=== PATIENT | male | born 1945 | race Caucasian/White ===

== ENCOUNTER 2021-11-25 15:24 | Emergency (ER) | payer MEDICARE, SELFPAY ==
[2021-11-25 15:37] VITALS: BP 119/64; PULSE 51; RESP 16; TEMP 36.7; O2SAT 100
[2021-11-25 15:48] VITALS: BP 119/64; PULSE 51; RESP 16; TEMP 36.7; O2SAT 100
--- NOTE | 2021-11-25 15:52 | ECG_ITS ---
Measurements Intervals [place] Rate: 43 P: 52 NH: 106 QRS: -67 QRSD: 133 T: 38 QT: 477 QTc: 407 Interpretive Statements SINUS BRADYCARDIA WITH SHORT NH INTERVAL LEFT AXIS DEVIATION LEFT BUNDLE BRANCH BLOCK ABNORMAL ECG NO PREVIOUS ECG AVAILABLE FOR COMPARISON Electronically Signed On 11-25-2021 16:45:40 CDT by Kapil Werner D.O.
--- NOTE | 2021-11-25 15:53 | ED.CHESTPAIN ---
HPI - Chest Pain General Chief Complaint: Chest Pain Stated Complaint: chest pain Time Seen by Provider: 11/25/21 15:50 Source: patient and RN notes reviewed Mode of arrival: ambulatory Limitations: no limitations History of Present Illness HPI narrative: 76-year-old male who has a history of dementia presents to the [facility] with significant other. Patient has had chest pain since 11 AM per significant other. Has taken at least 4 baby aspirin. Has vomited approximately 2 PM today. Is denying any other symptoms. MD complaint: chest pain Related Data Home Medications Medication Instructions Recorded Confirmed donepezil 10 mg tablet 10 mg PO DAILY 11/25/21 11/25/21 Allergies Allergy/AdvReac Type Severity Reaction Status Date / Time No Known Allergies Allergy Unverified 11/25/21 16:09 Review of Systems Review of Systems: All systems reviewed & are unremarkable except as noted in HPI and below Constitutional: Constitutional: Reports no additional constitutional complaints, Denies chills and Denies fever(s) Eyes: Eyes: Reports no additional eye complaints ENT: Reports system reviewed and no additional complaints, except as documented Cardiovascular: Cardiovascular: Reports as per HPI, Reports chest pain and Reports slow heart rate Respiratory: Respiratory: Reports no additional respiratory complaints Gastrointestinal: Gastrointestinal: Reports as per HPI, Reports nausea and Reports vomiting Musculoskeletal: Musculoskeletal: Reports no additional musculoskeletal complaints Integumentary/Breasts: Skin/Breast: Reports system reviewed and no additional complaints, except as docu Neurologic: Reports system reviewed and no additional complaints, except as documented Psychiatric: Psychiatric: Reports no additional psychiatric complaints Allergic/Immunologic: Allergic/Immunologic: Reports no additional allergic/immunologic complaints [facility] Past Medical History Medical History History of malignant neoplasm of prostate Hypercholesterolemia Hypertension Family History Family History Father , Lung Cancer No problems noted. Mother , Brain Aneurysm No problems noted. Social History Social History Smoking packs per day: 2 Smoking cigarettes per day: 40.0 Years smoked: 30 Smoking pack-years: 60.00 Smoking status: Former smoker Second hand tobacco smoke exposure: No Smoking end date: 01/01/79 Alcohol intake: never Substance use: never Substance use type: does not use Additional living arrangements comments: Lives with Girlfriend Gender identity (if verbalized by the patient): Male Sexual Orientation (if Verbalized by the Patient): Straight or Heterosexual Spiritual care concerns: No Agree to blood products: Yes Comments At the time of my signature, I reviewed and agree with the nursing past medical, surgical, social, and family history. There is no relevant family history pertinent to the patient complaint. Exam Const: General: healthy appearing, no acute distress and alert Nutritional Appearance: well nourished Orientation/consciousness: oriented to person Limitations: altered mental status (Dementia) HENMT: Head: normal to inspection Ears: external ears normal General nose exam: Normal external nose present and Normal nares present Eyes: General: appearance normal, both eyes and all related structures Pupils: Equal, round and reactive pupils present Neck: Neck: normal visual inspection, no lymphadenopathy and no meningeal signs Chest: Chest palpation & inspection: normal inspection of the chest and no tenderness Resp: Effort & Inspection: normal respiratory effort and no use of accessory muscles Auscultation: clear to auscultation bilaterally, no crackles, no rales, no rh
== END 2021-11-25 16:00 | disposition short-term general hospital (02) ==
PROVIDERS: Emergency Provider Nurse Practitioner; PCP Family Medicine Adolescent Medicine
DX: R07.9 Chest pain, unspecified (principal); Z87.891 Personal history of nicotine dependence; E78.00 Pure hypercholesterolemia, unspecified; I10 Essential (primary) hypertension; Z85.46 Personal history of malignant neoplasm of prostate
CPT/HCPCS: 93005; 99215; G0463

== ENCOUNTER 2021-11-25 16:26 | Observation (INO) | payer MEDICARE, SELFPAY ==
[2021-11-25] VITALS (15 sets, daily range): BP systolic 115–152; BP diastolic 55–113; PULSE 48–74; RESP 13–20; TEMP 36.3–36.7; O2SAT 96–100; BMI 26.0
--- NOTE | ~2021-11-25 | NM_ITS ---
EXAMINATION: NM donovan stress w perfusion DATE: 11/28/2021 13:35 INDICATION: Myocardial infarction. TECHNIQUE: Rest images were obtained following intravenous administration of 9.9 mCi Tc99m tetrofosmi n (Myoview). The patient was infused intravenously with Lexiscan (regadenoson). Then, 30.9 mCi Tc99m tetrofosmin (Myoview) was administered intravenously, and stress images were obtained. Data was recon structed into short axis and horizontal and vertical long axis SPECT images. Gated SPECT images were also obtained. COMPARISON: Chest CT 10/01/2013 FINDINGS: There is a large, severe, fixed perfusion defect involving inferior, inferolateral, and ant erolateral barker of left ventricle, consistent with infarct. No reversible component to suggest ische melina. There is no segmental wall motion abnormality. Left ventricular ejection fraction measures 63% . IMPRESSION: 1. Large area of severe infarct involving inferior, inferolateral, and anterolateral barker of left ve ntricle. 2. Normal left ventricular ejection fraction measuring 63%. Reviewed, dictated and finalized at location B. IMPRESSION: 1. Large area of severe infarct involving inferior, inferolateral, and anterola teral barker of left ventricle. 2. Normal left ventricular ejection fraction measuring 63%.
--- NOTE | ~2021-11-25 | US_ITS ---
EXAMINATION: US abdomen limited DATE: 11/27/2021 13:18 INDICATION: Elevated liver function tests TECHNIQUE: Multiple grayscale and Doppler ultrasound images of the abdomen were obtained. COMPARISON: CT abdomen and pelvis dated 10/01/2013 FINDINGS: Abdominal aorta is normal in caliber measuring 3.1 cm. Visualized portion of the proximal inferior ve na cava is normal. The small visualized portion of the body of the pancreas is unremarkable. The saroj rity of the pancreas is obscured by shadowing gas. Liver has normal contour, with a smooth surface. T here is increased parenchymal echogenicity and coarsened echotexture consistent with diffuse hepatic steatosis. No liver lesion identified. No intrahepatic biliary duct dilation suspected. Portal venou s flow was seen in the hepatopetal, normal direction and has normal Doppler waveform. The gallbladder is normal in appearance. There is no cholelithiasis. The common bile duct measures mm, which is nor mal. Sonographic Clark sign was reported as negative by the house builder. The right kidney measures 1 0.4 x 4.1 x 5.2 cm with mild likely age-related cortical atrophy but with normal renal cortical echog enicity and no hydronephrosis. IMPRESSION: 1. Diffuse hepatic steatosis. No cholelithiasis or biliary ductal dilation. 2. Likely age-related mild right renal atrophy. Reviewed, dictated and finalized at location A.
--- NOTE | ~2021-11-25 | XR_ITS ---
EXAMINATION: XR chest 2V 11/25/2021 16:50 INDICATION: Malaise. PROCEDURE: 2 view chest COMPARISON: No prior studies for comparison. FINDINGS: The lungs are clear. The cardiomediastinal silhouette is within normal limits. There are no pleural effusions. There is no pneumothorax suspected. IMPRESSION: 1: NO ACUTE CARDIOPULMONARY DISEASE. Reviewed, dictated and finalized at location B.
--- NOTE | 2021-11-25 16:35 | ECG_ITS ---
Measurements Intervals [place] Rate: 48 P: 66 ID: 139 QRS: -66 QRSD: 137 T: 48 QT: 461 QTc: 416 Interpretive Statements SINUS BRADYCARDIA INCOMPLETE LEFT BUNDLE BRANCH BLOCK COMPARED TO ECG 11/25/2021 15:52:26 NO SIGNIFICANT DIFFERENCE Electronically Signed On 11-28-2021 14:25:04 CDT by Asim Shelton M.D.
[2021-11-25 16:41] LABS: Basophils Percent Auto 0.2 % (0.2-1.2); Eosinophils Percent Auto 0.1 % (0-4.4); Hematocrit 41.7 % (42.0-52.0); Hemoglobin 14.7 g/dL (14.0-18.0); Immature Granulocyte Absolute 0.06 K/mm3 (0.00-0.031); Immature Granulocyte Percent A 0.6 % (0-0.5); Lymphocytes Absolute Auto 0.55 K/mm3 (0.9-3.2); Lymphocytes Percent Auto 5.2 % (18.3-44.2); Mean Corpuscular HGB Conc 35.3 g/dl (32-36); Mean Corpuscular Hemoglobin 33.2 pg (26-34); Mean Corpuscular Volume 94.1 fl (80-100); Mean Platelet Volume 10.8 fl (7.4-10.4); Monocytes Absolute Auto 0.3 K/mm3 (0.1-0.6); Neutrophils Absolute Auto 9.7 K/mm3 (1.3-6.7); Neutrophils Percent Auto 90.9 % (45.5-73.1); Platelet Count Result 184 k/mm3 (150-375); Red Blood Count 4.43 M/mm3 (4.6-6.20); Red Cell Distribution Width 13.1 % (11.5-14.5); White Blood Count 10.6 K/mm3 (4.5-10.0)
[2021-11-25 16:52] LABS: INR 1.1; Prothrombin Time 13.7 Seconds (11.1-14.7)
[2021-11-25 16:53] LABS: Partial Thromboplastin Time 27.7 SECONDS (22.3-36.8)
[2021-11-25 17:00] LABS: Alanine Aminotransferase 46 U/L (6-50); Albumin Level 4.3 g/dL (3.5-5.1); Alkaline Phosphatase 113 U/L (38-126); Anion Gap 10 mmol/L (8-16); Aspartate Amino Transferase 209 U/L (17-59); Bilirubin,Total 0.8 mg/dL (0.2-1.3); Blood Urea Nitrogen 20 mg/dL (9-20); Calcium 8.9 mg/dL (8.4-10.2); Carbon Dioxide 27 mmol/L (22-30); Chloride 103 mmol/L (98-107); Estimated CRCL calculation 42 ml/min; Estimated Glomerular Filt Rate 49; Glucose 174 mg/dL (65-110); Lipase 35 U/L (23-300); Potassium 4.6 mmol/L (3.4-5.0); Sodium 140 mmol/L (137-145)
--- NOTE | 2021-11-25 17:21 | ED.CHESTPAIN ---
HPI - Chest Pain General Chief Complaint: Arrhythmia/Palpitations Stated Complaint: bradycardia Time Seen by Provider: 11/25/21 17:08 Source: patient, RN notes reviewed and old records reviewed Mode of arrival: ambulatory Limitations: no limitations History of Present Illness HPI narrative: This is a 76 year old male with history of dementia who presents from urgent care for evaluation of chest pain. Patient is poor historian due to dementia and his is at bedside. She states she arrived back home around noon and patient was complaining of chest pain. His states patient had told her he just cut the yard. After a few hours patient was still complaining of chest pain and that he was tired, so they went to urgent care. Patient does not remember having chest pain and he denies having any pain now. His states he was not diaphoretic and he could not specify location of his pain. He took 4 baby aspirin prior to arrival. He denies any complaints. He does not have cardiac history. Related Data Home Medications Medication Instructions Recorded Confirmed donepezil 10 mg tablet 10 mg PO QHS 11/25/21 11/25/21 ibuprofen-diphenhydramine citrate 2 cap PO HS PRN Sleep 11/25/21 11/25/21 200 mg-38 mg tablet (Advil PM) Allergies Allergy/AdvReac Type Severity Reaction Status Date / Time No Known Allergies Allergy Verified 11/25/21 16:33 Review of Systems Review of Systems: All systems reviewed & are unremarkable except as noted in HPI and below Constitutional: Constitutional: Denies chills, Denies fatigue and Denies fever(s) Cardiovascular: Cardiovascular: Denies chest pain and Denies radiating jaw, neck or arm pain Respiratory: Respiratory: Denies chest congestion, Denies cough and Denies dyspnea Gastrointestinal: Gastrointestinal: Reports nausea and Reports vomiting (x 1) Musculoskeletal: Musculoskeletal: Denies back pain PMFSH Past Medical History Medical History Cataract History of malignant neoplasm of prostate Hypertension Surgical History Surgical History Hx of cataract extraction S/P TURP Family History Family History (Updated 11/25/21 @ 21:51 by Klaudia Starkey RN) Father , Lung Cancer No problems noted. Mother , Brain Aneurysm Unknown family medical history Social History Social History Social History: The patient lives with his significant other. He is . He has 4 biological children and 1 stepchild. He is retired from the [employer]. He is a former smoker. He denies any alcohol marijuana or illicit drugs. 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 Code status full code Smoking packs per day: 2 Smoking cigarettes per day: 40.0 Years smoked: 55 Smoking pack-years: 110.00 Smoking status: Former smoker Tobacco type: cigarettes Second hand tobacco smoke exposure: Yes Smoking end date: 02/26/14 Alcohol intake: former Drinks per week: 1 Substance use: never Substance use type: does not use Additional living arrangements comments: Lives with Girlfriend Gender identity (if verbalized by the patient): Male Sexual Orientation (if Verbalized by the Patient): Straight or Heterosexual Spiritual care concerns: No Agree to blood products: Yes Exam Const: General: no acute distress and alert Nutritional Appearance: well nourished Orientation/consciousness: patient oriented x3 Limitations: no limitations HENMT: Head: normal to inspection Eyes: EOM: EOMs intact bilaterally Chest: Chest palpation & inspection: normal inspection of the chest Resp: Effort & Inspection: normal respiratory effort Auscultation: clear to auscultation bilaterally Cardio: Rate: regular rate Rhythm: regular rhythm Heart sounds: no murmurs GI: GI Palp: Yes Soft
[2021-11-25] MEDS: HEPARIN SODIUM 5,000 UNITS/ML VIAL 4000 UNITS IV PUSH (18:15)
[2021-11-25] MEDS: HEPARIN SOD/D5W 100 UNITS/ML 25,000 UNITS/250 ML BAG 10 UNITS IV CONT (18:15)
--- NOTE | 2021-11-25 19:05 | PM.IMHP ---
H&P: [facility] History of Present Illness Date/Time: 11/25/21 19:05 Chief Complaint: Chest pain Narrative: This is a 76-year-old male patient who does have a history of dementia. He presented to the emergency room with a significant other and his son. The patient is a poor historian. The patient had cut the grass today on a riding more. After that the patient started to complain of chest pain. According to the significant other the patient was moving his arms around stating that his arms hurt. After few hours the patient was still complaining of chest pain and he was tired. They took him to the urgent care. Patient does not remember having any chest pain or complaining of it. The patient is currently pain-free. He was not nauseated. He is currently sitting up in the bed without any complaints. The patient took 4 baby aspirin prior to arrival. At urgent care the patient was found to have a very low heart rate in the 50s. When I assessed him in ER his heart rate was initially 50 but then it came up to the 80s. His white count came up to 10.6. Creatinine 1.4. Glucose 174. AST 209. Troponin 13.800. Triglycerides were 228. The patient was given an aspirin and started on heparin drip. Cardiology has been consulted. EKG was read as sinus bradycardia with short AL interval. Left axis deviation. Left bundle branch block. Abnormal EKG. Chest x-ray was read as no acute cardiopulmonary disease. Is being admitted to observation status on the date of service of 11/25/2021 Review of Systems Review of Systems: See HPI [facility] Past Medical History Medical History Cataract History of malignant neoplasm of prostate Hypertension Surgical History Surgical History Hx of cataract extraction S/P TURP Family History Family History (Updated 11/25/21 @ 21:51 by Klaudia Starkey RN) Father , Lung Cancer No problems noted. Mother , Brain Aneurysm Unknown family medical history Social History Social History Social History: The patient lives with his significant other. He is . He has 4 biological children and 1 stepchild. He is retired from the [employer]. He is a former smoker. He denies any alcohol marijuana or illicit drugs. 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 Code status full code Smoking packs per day: 2 Smoking cigarettes per day: 40.0 Years smoked: 55 Smoking pack-years: 110.00 Smoking status: Former smoker Tobacco type: cigarettes Second hand tobacco smoke exposure: Yes Smoking end date: 02/26/14 Alcohol intake: former Drinks per week: 1 Substance use: never Substance use type: does not use Additional living arrangements comments: Lives with Girlfriend Gender identity (if verbalized by the patient): Male Sexual Orientation (if Verbalized by the Patient): Straight or Heterosexual Spiritual care concerns: No Agree to blood products: Yes Meds Home Medications and Allergies Home Medications Medication Instructions Recorded Confirmed Type memantine 10 mg tablet 10 mg PO BID #180 tabs 11/21/21 11/25/21 Rx donepezil 10 mg tablet 10 mg PO QHS 11/25/21 11/25/21 History ibuprofen-diphenhydramine citrate 2 cap PO HS PRN Sleep 11/25/21 11/25/21 History 200 mg-38 mg tablet (Advil PM) Allergies Allergy/AdvReac Type Severity Reaction Status Date / Time No Known Allergies Allergy Verified 11/25/21 16:33 Vital Signs Vital Signs - 24 hr 11/25/21 16:26 11/25/21 16:29 11/25/21 16:30 Temperature 36.3 C L Pulse Rate 55 L 49 L 65 Respiratory Rate 14 17 19 Blood Pressure 149/76 H 134/113 H Pulse Oximetry 99 100 Oxygen Delivery Room Air 11/25/21 16:31 11/25/21 16:46 11/25/21 17:02 Temperature Pulse Rate 49 L Respiratory Rate 15 Blood Pressure 149/76 H
--- NOTE | 2021-11-25 19:40 | PC.NURSE ---
report given, provider assessed patient in ED. transferred to bed with heparin infusing
--- NOTE | 2021-11-25 20:43 | ADMGEN ---
This patient, Arash Garcia, was admitted to IMU Room 231-01 at 1955. Patient/family oriented to hospital policies and general routines including ID bracelet, bed and alarms, visiting hours, pain management, procedures, bathroom and other care routines, personal items, smoking policy, room service/diet, and visiting hours. Information on how to activate the Rapid Response Team has been discussed. Patient/Family are encouraged to report perceived risks to care and to ask questions if they do not understand what they are told or what they should do.
[2021-11-25 21:20] LABS: Basophils Percent Auto 0.2 % (0.2-1.2); Eosinophils Percent Auto 0.1 % (0-4.4); Hematocrit 41.1 % (42.0-52.0); Hemoglobin 14.2 g/dL (14.0-18.0); Immature Granulocyte Absolute 0.04 K/mm3 (0.00-0.031); Immature Granulocyte Percent A 0.4 % (0-0.5); Lymphocytes Absolute Auto 1.06 K/mm3 (0.9-3.2); Lymphocytes Percent Auto 10.1 % (18.3-44.2); Mean Corpuscular HGB Conc 34.5 g/dl (32-36); Mean Corpuscular Hemoglobin 33.3 pg (26-34); Mean Corpuscular Volume 96.3 fl (80-100); Mean Platelet Volume 10.8 fl (7.4-10.4); Monocytes Absolute Auto 0.6 K/mm3 (0.1-0.6); Monocytes Percent Auto 5.7 % (2.6-8.5); Neutrophils Absolute Auto 8.8 K/mm3 (1.3-6.7); Neutrophils Percent Auto 83.5 % (45.5-73.1); Platelet Count Result 175 k/mm3 (150-375); Red Blood Count 4.27 M/mm3 (4.6-6.20); Red Cell Distribution Width 13.2 % (11.5-14.5); White Blood Count 10.5 K/mm3 (4.5-10.0)
[2021-11-25 21:36] LABS: INR 1.1; Prothrombin Time 14.2 Seconds (11.1-14.7)
[2021-11-25 21:38] LABS: Partial Thromboplastin Time 99.5 SECONDS (22.3-36.8)
[2021-11-25] MEDS: MEMANTINE 10 MG TABLET PO (23:48)
[2021-11-25] MEDS: DONEPEZIL HCL 10 MG TABLET PO (23:48)
[2021-11-26] VITALS (13 sets, daily range): BP systolic 120–142; BP diastolic 58–72; PULSE 48–94; RESP 14–20; TEMP 36.4–36.8; O2SAT 97–100
--- NOTE | 2021-11-26 | ECHO_ITS ---
Patient Info Name: Arash Garcia Age: 76 years : 1945 Gender: Male Ht: 70 in Wt: 181 lbs BSA: 2.02 m2 HR: 47 bpm BP: 140 / 64 mmHg Heart Rhythm: Sinus Rhythm, Bradycardia Technical Quality: Fair Exam Date: 11/26/2021 7:26 AM Exam Location: [facility] Patient Status: Inpatient Admit Date: 11/25/2021 Staff Ordering Physician: Laurel Oliveira NP Educational Therapist: Maya Tam RDCS Attending Provider: Suzan Koenig DO Referring Physician: Roxanne GREWAL; Exam Type: CA echo doppler color flow Study Info Indications I21.4 - Non-ST elevation (NSTEMI) myocardial infarction Complete two-dimensional, color flow and Doppler transthoracic echocardiogram is performed with contrast to opacify the left ventricle and to improve the deliniation of the left ventricle endocardial borders. Contrast/Agitated Saline Contrast/Ag. Saline: Definity Amount: 4.00 ml Administered By: Maya Tam [facility] Summary 1. Technically difficult study. 2. Left ventricular systolic function is mildly reduced, estimated at 45-50%. 3. No significant valvular disease. Left Ventricle Left ventricular chamber dimension is mildly enlarged. Left ventricular systolic function is mildly reduced, estimated at 45-50%. There is no increased left ventricular wall thickness. The left ventricular diastolic function is grade I diastolic dysfunction. Regional wall motion abnormalities cannot be excluded. Right Ventricle Right ventricular chamber dimension is normal. Right ventricular systolic function is normal. Left Atria Left atrial chamber dimension is normal. Right Atria Right atrial chamber dimension is normal. Atrial Septum Intact interatrial septum visualized by color flow imaging. Aortic Valve The aortic valve is not well visualized. There is mild aortic valve sclerosis. There is no aortic valve stenosis. There is no aortic valve regurgitation. Pulmonic Valve The pulmonic valve is not well visualized. Mitral Valve The mitral valve has normal leaflets. There is mild mitral valve regurgitation. Tricuspid Valve The tricuspid valve leaflets are not well visualized. There is mild tricuspid valve regurgitation. Pericardium/Pleural There is no pericardial effusion. Inferior Vena Cava Normal inferior vena cava with >50% collapse upon inspiration consistent with Empty right atrial pressure, Empty. Left Ventricular Outflow Tract Name Value Normal LVOT 2D LVOT Diameter 2.1 cm LVOT Doppler LVOT Peak Gradient 4 mmHg LVOT Mean Gradient 2 mmHg LVOT VTI 25 cm LVOT VTI/AV VTI Ratio 0.8 LVOT Stroke Volume 86 ml LVOT CO 14.7 l/min LVOT CI 7.2 l/min/m2 Pulmonic Valve Name Value Normal
[2021-11-26 00:08] LABS: Troponin I > 80.000 ng/mL (0.000-0.034)
--- NOTE | 2021-11-26 00:17 | ECG_ITS ---
Measurements Intervals [place] Rate: 48 P: 70 GA: 148 QRS: -69 QRSD: 117 T: -50 QT: 435 QTc: 392 Interpretive Statements BASELINE ARTIFACT/REDUCED QUALITY ECG SINUS BRADYCARDIA LEFT BUNDLE BRANCH BLOCK LEFT AXIS DEVIATION COMPARED TO ECG 11/25/2021 16:35:10 NO SIGNIFICANT CHANGE WITH REDUCED ECG QUALITY Electronically Signed On 11-28-2021 14:28:37 CDT by Asim Shelton M.D.
--- NOTE | 2021-11-26 01:15 | PC.NURSE ---
Called Cardiology exchange to page Dr. Casas at 0034 on 11/26/21. Dr. Casas returned the page at 0102. Notified Dr. Casas of troponin >80.00, pt having episode of v-tach of 16 beats and repeat EKG was done. No new orders were given.
[2021-11-26 02:17] LABS: Troponin I > 80.000 ng/mL (0.000-0.034)
[2021-11-26 02:34] LABS: Magnesium 2.4 mg/dL (1.6-2.3)
[2021-11-26 04:45] LABS: Basophils Percent Auto 0.2 % (0.2-1.2); Eosinophils Absolute Auto 0.1 K/mm3 (0-0.3); Eosinophils Percent Auto 0.8 % (0-4.4); Hematocrit 37.2 % (42.0-52.0); Hemoglobin 13.1 g/dL (14.0-18.0); Immature Granulocyte Absolute 0.02 K/mm3 (0.00-0.031); Immature Granulocyte Percent A 0.2 % (0-0.5); Lymphocytes Absolute Auto 1.55 K/mm3 (0.9-3.2); Mean Corpuscular HGB Conc 35.2 g/dl (32-36); Mean Corpuscular Hemoglobin 33.4 pg (26-34); Mean Corpuscular Volume 94.9 fl (80-100); Mean Platelet Volume 10.7 fl (7.4-10.4); Monocytes Absolute Auto 0.9 K/mm3 (0.1-0.6); Monocytes Percent Auto 8.9 % (2.6-8.5); Neutrophils Absolute Auto 7.2 K/mm3 (1.3-6.7); Neutrophils Percent Auto 73.9 % (45.5-73.1); Platelet Count Result 164 k/mm3 (150-375); Red Blood Count 3.92 M/mm3 (4.6-6.20); Red Cell Distribution Width 13.2 % (11.5-14.5); White Blood Count 9.7 K/mm3 (4.5-10.0)
[2021-11-26 04:56] LABS: Partial Thromboplastin Time 65.6 SECONDS (22.3-36.8)
[2021-11-26 05:01] LABS: Alanine Aminotransferase 71 U/L (6-50); Alkaline Phosphatase 100 U/L (38-126); Anion Gap 9 mmol/L (8-16); Aspartate Amino Transferase 358 U/L (17-59); Bilirubin,Total 0.8 mg/dL (0.2-1.3); Blood Urea Nitrogen 18 mg/dL (9-20); CRP < 0.5 mg/dL (<1.0); Calcium 8.6 mg/dL (8.4-10.2); Carbon Dioxide 27 mmol/L (22-30); Chloride 103 mmol/L (98-107); Cholesterol 169 mg/dL (0-200); Estimated CRCL calculation 48 ml/min; Estimated Glomerular Filt Rate 59; Glucose 120 mg/dL (65-110); HDL Direct 31 mg/dL; Potassium 3.8 mmol/L (3.4-5.0); Sodium 139 mmol/L (137-145); Triglycerides 156 mg/dL (<150)
[2021-11-26 05:10] LABS: LDL Cholesterol Direct 97 mg/dL
[2021-11-26] MEDS: HEPARIN SODIUM 5,000 UNITS/ML VIAL 3500 UNITS IV PUSH (06:48)
[2021-11-26] MEDS: PERFLUTREN LIPID MICROSPHERES 1.5 ML VIAL DILUTED TO 10 ML TOTAL VOLUME IV PUSH (08:15)
--- NOTE | 2021-11-26 08:47 | ECG_ITS ---
Rate 54 CO 137 QRSd 133 QT 475 QTc 452 --[facility]-- P 37 QRS -71 T -44 SINUS BRADYCARDIA LEFT BUNDLE BRANCH BLOCK LEFT AXIS DEVIATION Electronically Signed On 11-27-2021 17:04:36 CDT by Cayetano Hammond M.D. COMPARED TO ECG 11/26/2021 00:17:27 NO SIGNIFICANT CHANGES MTDD
--- NOTE | 2021-11-26 08:48 | PM.IMPN ---
Progress Note: A&P Assessment and Plan (1) Non-STEMI (non-ST elevated myocardial infarction): Code(s): I21.4 - Non-ST elevation (NSTEMI) myocardial infarction Status: Acute Assessment and Plan: Appreciate cardiology consultation, trend troponin, monitor telemetry, continue heparin drip, echo pending (2) Chest pain: Qualifiers: Chest pain type: unspecified Qualified Code(s): R07.9 - Chest pain, unspecified Code(s): R07.9 - Chest pain, unspecified Status: Inactive Assessment and Plan: Resolved (3) Dementia: Code(s): F03.90 - Unspecified dementia, unspecified severity, without behavioral disturbance, psychotic disturbance, mood disturbance, and anxiety Status: Acute Assessment and Plan: Continue Aricept and Namenda (4) Transaminitis: Code(s): R74.01 - Elevation of levels of liver transaminase levels Status: Acute Assessment and Plan: Could be hypoperfusion, will trend, will investigate further if these numbers continue to elevate Plan DVT prophylaxis with heparin drip GI prophylaxis with PPI Code status full code Subjective Date/time seen: 11/26/21 08:48 Interval history: No overnight events noted. No chest pain or shortness of breath. No nausea, vomiting or diarrhea. No fevers or chills. Review of Systems Review of Systems: ROS unobtainable: Yes unobtainable due to mental status Exam Narrative: General: No acute distress, alert and oriented per baseline HEENT: Atraumatic, normocephalic, mucous membranes moist CV: Regular rate and rhythm, S1, S2 Lungs: Clear to auscultation bilaterally, no rales or crackles noted, no wheezes, good air entry Abdomen: Soft, nontender, nondistended Extremities: Normal to inspection Skin: No rashes noted, no lesions or wounds seen Psych: Euthymic, normal affect Objective Data Vital Signs Vital Signs: Vital Signs - 24 hr 11/25/21 16:26 11/25/21 16:29 11/25/21 16:30 Temperature 97.4 F L Pulse Rate 55 L 49 L 65 Respiratory Rate 14 17 19 Blood Pressure 149/76 H 134/113 H Pulse Oximetry 99 100 Oxygen Delivery Room Air 11/25/21 16:31 11/25/21 16:46 11/25/21 17:02 Temperature Pulse Rate 49 L Respiratory Rate 15 Blood Pressure 149/76 H Pulse Oximetry 99 99 100 Oxygen Delivery 11/25/21 18:28 11/25/21 17:21 11/25/21 17:30 Temperature Pulse Rate 55 L 53 L Respiratory Rate 19 16 Blood Pressure 115/55 L Pulse Oximetry 96 99 Oxygen Delivery 11/25/21 17:55 11/25/21 18:05 11/25/21 17:40 Temperature Pulse Rate 61 57 L 48 L Respiratory Rate 17 13 Blood Pressure Pulse Oximetry 99 100 Oxygen Delivery 11/25/21 18:45 11/25/21 21:00 11/26/21 00:00 Temperature 98.0 F 98.0 F Pulse Rate 58 L 74 52 L Respiratory Rate 20 20 18 Blood Pressure 142/79 H 152/72 H 142/71 H Pulse Oximetry 98 100 100 Oxygen Delivery 11/25/21 22:00 11/26/21 00:00 11/26/21 00:00 Temperature Pulse Rate 66 82 Respiratory Rate Blood Pressure Pulse Oximetry Oxygen Delivery Room Air 11/26/21 02:00 11/26/21 04:00 11/26/21 04:00 Temperature Pulse Rate 48 L 51 L Respiratory Rate Blood Pressure Pulse Oximetry Oxygen Delivery Room Air 11/26/21 04:00 11/26/21 06:00 Temperature 97.8 F Pulse Rate 52 L 49 L Respiratory Rate 14 Blood Pressure 140/64 Pulse Oximetry 99 Oxygen Delivery Intake/Output Intake/Output: Intake & Output 11/23/21 11/24/21 11/25/21 11/26/21 23:59 23:59 23:59 23:59 Intake Total 120 Output Total 100 Balance 20 Meds/Results Medications: Active Medications Generic Name Dose Route Start Last Admin Trade Name Nikki PRN Reason Stop Dose Admin Aspirin 81 mg 11/26/21 08:00 Aspirin 81 Mg Chewable Tablet PO DAILY@0800 [facility] Donepezil HCl 10 mg 11/25/21 23:15 11/25/21 23:48 Donepezil Hcl 10 Mg Tablet PO 10 mg QHS [facility] Administration He
[2021-11-26] MEDS: PANTOPRAZOLE SODIUM IV 40 MG VIAL IV PUSH ×2 (09:51→21:55)
[2021-11-26] MEDS: ASPIRIN 81 MG CHEWABLE TABLET PO (09:51)
[2021-11-26] MEDS: MEMANTINE 10 MG TABLET PO ×2 (09:51→16:52)
[2021-11-26] MEDS: METOPROLOL SUCCINATE EXT REL 25 MG TABCR PO (12:03)
[2021-11-26] MEDS: TICAGRELOR 90 MG TABLET 180 MG PO (12:03)
[2021-11-26 13:23] LABS: Partial Thromboplastin Time 134.9 SECONDS (22.3-36.8)
--- NOTE | 2021-11-26 17:51 | PM.CNCAR ---
Assessment and Plan Assessment and plan (1) Non-STEMI (non-ST elevated myocardial infarction): Code(s): I21.4 - Non-ST elevation (NSTEMI) myocardial infarction Status: Acute (2) Transaminitis: Code(s): R74.01 - Elevation of levels of liver transaminase levels Status: Acute Plan EKG with LBBB. Troponin trend 13.8 --> >80 --> 80 Patient likely has had an acute myocardial infarction, and given patient remains chest pain free since admission, he has likely already completed his infarct. Will treat with ASA, Brilinta load followed by maintenance dose, Heparin drip, beta-jose. Start high-intensity statin tomorrow if LFTs improve. Echo ordered and pending. Discussed the case with patient's son, and given patient's significant dementia, they may not pursue invasive evaluation if patient remains clinically stable. History of Present Illness History of Present Illness Consult date/time: 11/26/21 17:51 Requesting physician: Cinthya Fermin MD Consult reason: Other (NSTEMI) Reason For Visit: NSTEMI Narrative: Patient is a 76-year-old with dementia who presented with chest pain. When asked about his pain, patient cannot remember having any pain yesterday. Upon discussion with the patient's son, patient had reported chest pain around 1PM yesterday afternoon and continued on. Around 3:30PM, patient had told him that his pain felt more severe. Patient's son states he was mowing the grass earlier on a riding mower, and had started having the pain around lunchtime. Patient cannot give any history, but denies any chest pain, shortness of breath this morning. States he feels great. Review of Systems Review of Systems: All systems reviewed & are unremarkable except as noted in HPI and below (HPI) [facility] Past Medical History Medical History Cataract History of malignant neoplasm of prostate Hypertension Surgical History Surgical History Hx of cataract extraction S/P TURP Family History Family History Father , Lung Cancer No problems noted. Mother , Brain Aneurysm Unknown family medical history Social History Social History Social History: The patient lives with his significant other. He is . He has 4 biological children and 1 stepchild. He is retired from the [employer] [place]. He is a former smoker. He denies any alcohol marijuana or illicit drugs. He denies any power regulatory attorney. Code status full code Smoking packs per day: 2 Smoking cigarettes per day: 40.0 Years smoked: 55 Smoking pack-years: 110.00 Smoking status: Former smoker Tobacco type: cigarettes Second hand tobacco smoke exposure: Yes Smoking end date: 02/26/14 Alcohol intake: former Drinks per week: 1 Substance use: never Substance use type: does not use Additional living arrangements comments: Lives with Girlfriend Gender identity (if verbalized by the patient): Male Sexual Orientation (if Verbalized by the Patient): Straight or Heterosexual Spiritual care concerns: No Agree to blood products: Yes Meds Home Medications and Allergies Home Medications Medication Instructions Recorded Confirmed Type memantine 10 mg tablet 10 mg PO BID #180 tabs 11/21/21 11/25/21 Rx donepezil 10 mg tablet 10 mg PO QHS 11/25/21 11/25/21 History ibuprofen-diphenhydramine citrate 2 cap PO HS PRN Sleep 11/25/21 11/25/21 History 200 mg-38 mg tablet (Advil PM) Allergies Allergy/AdvReac Type Severity Reaction Status Date / Time No Known Allergies Allergy Verified 11/25/21 16:33 Vital Signs Vital Signs - 24 hr 11/25/21 18:28 11/25/21 17:55 11/25/21 18:05 Temperature Pulse Rate 61 57 L Respiratory Rate 17 13 Blood Pressure 115/55 L Pulse Oximet
[2021-11-26] MEDS: HEPARIN SOD/D5W 100 UNITS/ML 25,000 UNITS/250 ML BAG 9 UNITS IV CONT (21:10)
[2021-11-26 21:25] LABS: Partial Thromboplastin Time 53.4 SECONDS (22.3-36.8)
[2021-11-26] MEDS: OLANZapine 10 MG INJ VIAL 5 MG IM ×2 (21:55→23:49)
[2021-11-26] MEDS: DONEPEZIL HCL 10 MG TABLET PO (22:00)
[2021-11-26] MEDS: TICAGRELOR 90 MG TABLET PO (22:01)
[2021-11-26] MEDS: HEPARIN SODIUM 5,000 UNITS/ML VIAL 4000 UNITS IV PUSH (22:03)
[2021-11-26] MEDS: WATER, STERILE FOR INJECTION 10 ML VIAL XX (22:38)
[2021-11-26] MEDS: LORazepam INJ (*CRX) 2 MG/ML VIAL 0.5 MG IV PUSH (23:49)
[2021-11-27] VITALS (13 sets, daily range): BP systolic 103–143; BP diastolic 56–67; PULSE 46–81; RESP 16–20; TEMP 36.4–36.9; O2SAT 98–100
[2021-11-27 04:49] LABS: Basophils Percent Auto 0.4 % (0.2-1.2); Eosinophils Absolute Auto 0.1 K/mm3 (0-0.3); Eosinophils Percent Auto 1.1 % (0-4.4); Hematocrit 41.1 % (42.0-52.0); Hemoglobin 13.9 g/dL (14.0-18.0); Immature Granulocyte Absolute 0.04 K/mm3 (0.00-0.031); Immature Granulocyte Percent A 0.5 % (0-0.5); Lymphocytes Absolute Auto 1.38 K/mm3 (0.9-3.2); Lymphocytes Percent Auto 18.6 % (18.3-44.2); Mean Corpuscular HGB Conc 33.8 g/dl (32-36); Mean Corpuscular Hemoglobin 33.3 pg (26-34); Mean Corpuscular Volume 98.6 fl (80-100); Monocytes Absolute Auto 0.7 K/mm3 (0.1-0.6); Monocytes Percent Auto 8.7 % (2.6-8.5); Neutrophils Absolute Auto 5.3 K/mm3 (1.3-6.7); Neutrophils Percent Auto 70.7 % (45.5-73.1); Platelet Count Result 154 k/mm3 (150-375); Red Blood Count 4.17 M/mm3 (4.6-6.20); Red Cell Distribution Width 13.5 % (11.5-14.5); White Blood Count 7.4 K/mm3 (4.5-10.0)
[2021-11-27 04:57] LABS: Alanine Aminotransferase 65 U/L (6-50); Albumin Level 4.3 g/dL (3.5-5.1); Alkaline Phosphatase 105 U/L (38-126); Anion Gap 8 mmol/L (8-16); Aspartate Amino Transferase 192 U/L (17-59); Bilirubin,Total 1.1 mg/dL (0.2-1.3); Blood Urea Nitrogen 24 mg/dL (9-20); Calcium 8.9 mg/dL (8.4-10.2); Carbon Dioxide 23 mmol/L (22-30); Chloride 109 mmol/L (98-107); Estimated CRCL calculation 45 ml/min; Estimated Glomerular Filt Rate 54; Glucose 107 mg/dL (65-110); Sodium 140 mmol/L (137-145)
[2021-11-27 05:01] LABS: Partial Thromboplastin Time 121.9 SECONDS (22.3-36.8)
[2021-11-27] MEDS: ASPIRIN 81 MG CHEWABLE TABLET PO (09:28)
[2021-11-27] MEDS: TICAGRELOR 90 MG TABLET PO ×2 (09:28→20:53)
[2021-11-27] MEDS: MEMANTINE 10 MG TABLET PO ×2 (09:28→17:15)
[2021-11-27] MEDS: PANTOPRAZOLE SODIUM IV 40 MG VIAL IV PUSH ×2 (09:33→20:53)
[2021-11-27 11:52] LABS: Partial Thromboplastin Time 33.1 SECONDS (22.3-36.8)
[2021-11-27] MEDS: HEPARIN SODIUM 5,000 UNITS/ML VIAL 4000 UNITS IV PUSH (12:36)
[2021-11-27 12:38] LABS: CRP 0.9 mg/dL (<1.0)
[2021-11-27 13:21] LABS: Hepatitis B Surface Antigen Negative (Negative)
[2021-11-27 13:27] LABS: HAV RESULT Negative (Negative); Hepatitis B Core IgM Result Negative (Negative)
[2021-11-27 13:39] LABS: Hepatitis C Virus Antibody Negative (Negative)
--- NOTE | 2021-11-27 14:38 | PM.PNCARD ---
Progress Note: A&P Assessment and Plan (1) Non-STEMI (non-ST elevated myocardial infarction): Code(s): I21.4 - Non-ST elevation (NSTEMI) myocardial infarction Status: Acute Plan EKG with LBBB. Troponin trend 13.8 --> >80 --> 80 Patient likely has had an acute myocardial infarction, and given patient remains chest pain free since admission, he has likely already completed his infarct. Echo obtained, was a technically difficult study. EF appears mildly reduced, no significant valvular disease Will treat with ASA, Brilinta load followed by maintenance dose, Heparin drip x 48 hours, beta-jose. Start high-intensity statin LFTs improve. Discussed the case with patient's son, and given patient's significant dementia, they would not like to pursue invasive management (cardiac cath) at this time as patient has been chest pain free and overall stable. Will obtain an MPI to assess for degree of ischemic/infarct burden. Subjective Date/time seen: 11/27/21 14:38 Interval history: No acute events overnight. Patient remains asymptomatic. States he still feels great, and wants to go home soon. Review of Systems Review of Systems: All systems reviewed & are unremarkable except as noted in HPI and below (subjective) Exam Const: General: comfortable and no acute distress Neck: Neck: no JVD Resp: Effort & Inspection: normal respiratory effort Auscultation: clear to auscultation bilaterally Cardio: Rate: regular rate Rhythm: regular rhythm Heart sounds: no murmurs Skin: General skin exam: normal color Neuro: Speech: normal speech Extrem: General: no edema Psych: Mental Status: mental status grossly normal Objective Data Vital Signs Vital Signs: Vital Signs - 24 hr 11/26/21 16:00 11/26/21 16:00 11/26/21 18:00 Temperature 36.8 C Pulse Rate 59 L 54 L 55 L Respiratory Rate 18 Blood Pressure 135/65 Pulse Oximetry 98 Oxygen Delivery 11/26/21 16:00 11/26/21 20:00 11/26/21 20:00 Temperature 36.7 C Pulse Rate 56 L Respiratory Rate 18 Blood Pressure 135/58 L Pulse Oximetry 97 Oxygen Delivery Room Air Room Air 11/27/21 00:00 11/27/21 04:00 11/26/21 20:00 Temperature 36.9 C 36.4 C Pulse Rate 57 L 54 L 62 Respiratory Rate 20 18 Blood Pressure 143/64 H 130/64 Pulse Oximetry 100 100 Oxygen Delivery 11/26/21 22:00 11/27/21 00:00 11/27/21 02:00 Temperature Pulse Rate 94 73 54 L Respiratory Rate Blood Pressure Pulse Oximetry Oxygen Delivery 11/27/21 04:00 11/27/21 06:00 11/27/21 00:00 Temperature Pulse Rate 49 L 52 L Respiratory Rate Blood Pressure Pulse Oximetry Oxygen Delivery Room Air 11/27/21 04:00 11/27/21 09:29 11/27/21 08:00 Temperature Pulse Rate 50 L Respiratory Rate Blood Pressure Pulse Oximetry Oxygen Delivery Room Air Room Air 11/27/21 08:00 11/27/21 08:00 11/27/21 10:00 Temperature 36.8 C Pulse Rate 54 L 46 L 56 L Respiratory Rate 16 Blood Pressure 131/61 Pulse Oximetry 98 Oxygen Delivery 11/27/21 12:00 11/27/21 12:00 11/27/21 12:00 Temperature 36.6 C Pulse Rate 53 L 63 Respiratory Rate 20 Blood Pressure 136/67 Pulse Oximetry 98 98 Oxygen Delivery Room Air Intake/Output Intake/Output: Intake & Output 11/24/21 11/25/21 11/26/21 11/27/21 23:59 23:59 23:59 23:59 Intake Total 730 240 Output Total 200 Balance 530 240 Meds/Results Medications: Active Medications Generic Name Dose Route Start Last Admin Trade Name Freq PRN Reason Stop Dose Admin Aspirin 81 mg 11/26/21 08:00 11/27/21 09:28 Aspirin 81 Mg Chewable Tablet PO 81 mg DAILY@0800 [facility] Administration Donepezil HCl 10 mg 11/25/21 23:15 11/26/21 22:00 Donepezil Hcl 10 Mg Tablet PO 10 mg QHS KARLI Administration Heparin Sodium (Porcine) 4,000 units 11/25/21 17:50 11/27/21 12:36 Heparin Sodium 5,000 Units/Ml Vial IV PUSH 4,000 units PRN PRN
--- NOTE | 2021-11-27 16:16 | PM.IMPN ---
Progress Note: A&P Assessment and Plan (1) Non-STEMI (non-ST elevated myocardial infarction): Code(s): I21.4 - Non-ST elevation (NSTEMI) myocardial infarction Status: Acute Assessment and Plan: Appreciate cardiology consultation, trend troponin, monitor telemetry, continue heparin drip, echo reviewed Status post Brilinta loading dose followed by maintenance dose Will start high-intensity statin with LFTs resolve, continue beta-jose (2) Chest pain: Qualifiers: Chest pain type: unspecified Qualified Code(s): R07.9 - Chest pain, unspecified Code(s): R07.9 - Chest pain, unspecified Status: Inactive Assessment and Plan: Resolved, family refusing heart catheterization at this time due to dementia (3) Dementia: Code(s): F03.90 - Unspecified dementia, unspecified severity, without behavioral disturbance, psychotic disturbance, mood disturbance, and anxiety Status: Acute Assessment and Plan: Continue Aricept and Namenda (4) Transaminitis: Code(s): R74.01 - Elevation of levels of liver transaminase levels Status: Acute Assessment and Plan: Slowly resolving, unsure of etiology, right upper quadrant ultrasound and hepatitis panel both pending Plan DVT prophylaxis with heparin drip GI prophylaxis with PPI Code status full code Subjective Date/time seen: 11/27/21 16:16 Interval history: Patient pleasantly confused at baseline. No overnight events noted. No chest pain or shortness of breath. No nausea, vomiting or diarrhea. No fevers or chills. Review of Systems Review of Systems: ROS unobtainable: Yes unobtainable due to mental status Exam Narrative: General: No acute distress, alert and oriented per baseline HEENT: Atraumatic, normocephalic, mucous membranes moist CV: Regular rate and rhythm, S1, S2 Lungs: Clear to auscultation bilaterally, no rales or crackles noted, no wheezes, good air entry Abdomen: Soft, nontender, nondistended Extremities: Normal to inspection Skin: No rashes noted, no lesions or wounds seen Psych: Euthymic, normal affect Objective Data Vital Signs Vital Signs: Vital Signs - 24 hr 11/26/21 18:00 11/26/21 20:00 11/26/21 20:00 Temperature 98.1 F Pulse Rate 55 L 56 L Respiratory Rate 18 Blood Pressure 135/58 L Pulse Oximetry 97 Oxygen Delivery Room Air 11/27/21 00:00 11/27/21 04:00 11/26/21 20:00 Temperature 98.4 F 97.6 F Pulse Rate 57 L 54 L 62 Respiratory Rate 20 18 Blood Pressure 143/64 H 130/64 Pulse Oximetry 100 100 Oxygen Delivery 11/26/21 22:00 11/27/21 00:00 11/27/21 02:00 Temperature Pulse Rate 94 73 54 L Respiratory Rate Blood Pressure Pulse Oximetry Oxygen Delivery 11/27/21 04:00 11/27/21 06:00 11/27/21 00:00 Temperature Pulse Rate 49 L 52 L Respiratory Rate Blood Pressure Pulse Oximetry Oxygen Delivery Room Air 11/27/21 04:00 11/27/21 09:29 11/27/21 08:00 Temperature Pulse Rate 50 L Respiratory Rate Blood Pressure Pulse Oximetry Oxygen Delivery Room Air Room Air 11/27/21 08:00 11/27/21 08:00 11/27/21 10:00 Temperature 98.2 F Pulse Rate 54 L 46 L 56 L Respiratory Rate 16 Blood Pressure 131/61 Pulse Oximetry 98 Oxygen Delivery 11/27/21 12:00 11/27/21 12:00 11/27/21 12:00 Temperature 97.8 F Pulse Rate 53 L 63 Respiratory Rate 20 Blood Pressure 136/67 Pulse Oximetry 98 98 Oxygen Delivery Room Air Intake/Output Intake/Output: Intake & Output 11/24/21 11/25/21 11/26/21 11/27/21 23:59 23:59 23:59 23:59 Intake Total 730 240 Output Total 200 Balance 530 240 Meds/Results Medications: Active Medications Generic Name Dose Route Start Last Admin Trade Name Freq PRN Reason Stop Dose Admin Aspirin 81 mg 11/26/21 08:00 11/27/21 09:28 Aspirin 81 Mg Chewable Tablet PO 81 mg DAILY@0800 KARLI Administration Donepezil HCl
[2021-11-27 19:25] LABS: Partial Thromboplastin Time 131.5 SECONDS (22.3-36.8)
[2021-11-27] MEDS: DONEPEZIL HCL 10 MG TABLET PO (20:53)
[2021-11-27] MEDS: HEPARIN SOD/D5W 100 UNITS/ML 25,000 UNITS/250 ML BAG 11 UNITS IV CONT (23:18)
[2021-11-28] VITALS (9 sets, daily range): BP systolic 109–123; BP diastolic 63–76; PULSE 62–88; RESP 16–20; TEMP 36.3–36.9; O2SAT 95–99
[2021-11-28] MEDS: OLANZapine 10 MG INJ VIAL 5 MG IM (02:16)
--- NOTE | 2021-11-28 02:23 | PC.NURSE ---
11/28/21 0145- Pt becoming increasingly more confused, agitated and unable to be redirected. Pt pulling at IV line and telemetry cords, wanting to get out of bed. Pt thinks that he is at home and wants us to get out of his house. Pt re-educated on his plan of care and why he is in the hospital. Dr. Piedra notified of Pt's increased agitation and new orders received. physical medicine specialist remains in Pt's room for safety. Will continue to monitor patient closely.
[2021-11-28 02:42] LABS: Basophils Percent Auto 0.3 % (0.2-1.2); Eosinophils Absolute Auto 0.2 K/mm3 (0-0.3); Hematocrit 39.8 % (42.0-52.0); Hemoglobin 13.8 g/dL (14.0-18.0); Immature Granulocyte Absolute 0.03 K/mm3 (0.00-0.031); Immature Granulocyte Percent A 0.3 % (0-0.5); Lymphocytes Absolute Auto 1.16 K/mm3 (0.9-3.2); Lymphocytes Percent Auto 12.2 % (18.3-44.2); Mean Corpuscular HGB Conc 34.7 g/dl (32-36); Mean Corpuscular Hemoglobin 33.1 pg (26-34); Mean Corpuscular Volume 95.4 fl (80-100); Mean Platelet Volume 10.7 fl (7.4-10.4); Monocytes Absolute Auto 0.8 K/mm3 (0.1-0.6); Monocytes Percent Auto 8.6 % (2.6-8.5); Neutrophils Absolute Auto 7.3 K/mm3 (1.3-6.7); Neutrophils Percent Auto 76.6 % (45.5-73.1); Platelet Count Result 155 k/mm3 (150-375); Red Blood Count 4.17 M/mm3 (4.6-6.20); Red Cell Distribution Width 13.3 % (11.5-14.5); White Blood Count 9.5 K/mm3 (4.5-10.0)
[2021-11-28 02:59] LABS: Alanine Aminotransferase 53 U/L (6-50); Albumin Level 4.3 g/dL (3.5-5.1); Alkaline Phosphatase 114 U/L (38-126); Anion Gap 12 mmol/L (8-16); Aspartate Amino Transferase 110 U/L (17-59); Bilirubin,Total 1.1 mg/dL (0.2-1.3); Blood Urea Nitrogen 27 mg/dL (9-20); Calcium 8.7 mg/dL (8.4-10.2); Carbon Dioxide 20 mmol/L (22-30); Chloride 108 mmol/L (98-107); Estimated CRCL calculation 35 ml/min; Estimated Glomerular Filt Rate 39; Glucose 142 mg/dL (65-110); Potassium 3.7 mmol/L (3.4-5.0); Sodium 140 mmol/L (137-145)
[2021-11-28 03:08] LABS: Partial Thromboplastin Time 161.8 SECONDS (22.3-36.8)
[2021-11-28 10:39] LABS: Partial Thromboplastin Time 103.1 SECONDS (22.3-36.8)
--- NOTE | 2021-11-28 12:48 | PM.PNCARD ---
Progress Note: A&P Assessment and Plan (1) Non-STEMI (non-ST elevated myocardial infarction): Code(s): I21.4 - Non-ST elevation (NSTEMI) myocardial infarction Status: Acute (2) Dementia: Code(s): F03.90 - Unspecified dementia, unspecified severity, without behavioral disturbance, psychotic disturbance, mood disturbance, and anxiety Status: Acute (3) Transaminitis: Code(s): R74.01 - Elevation of levels of liver transaminase levels Status: Acute Plan EKG with LBBB. Troponin trend 13.8 --> >80 --> 80 Patient likely has had an acute myocardial infarction, and given patient remains chest pain free since admission, he has likely already completed his infarct. Echo obtained, was a technically difficult study. EF appears mildly reduced, no significant valvular disease Will treat medically with ASA, Brilinta load followed by maintenance dose, Heparin drip x 48 hours, beta-jose, high-intensity statin. Patient to continue DAPT upon discharge (ASA indefinitely, Brilinta for 1 year, continue high-intensity statin, and beta-jose as well. Discussed the case with patient's son, and given patient's significant dementia, they would not like to pursue invasive management (cardiac cath) at this time as patient has been chest pain free and overall stable. Will obtain an MPI to assess for degree of ischemic/infarct burden and prognostic stratification. Subjective Date/time seen: 11/28/21 12:48 Interval history: No acute events overnight. Lexiscan planned for this morning. Review of Systems Review of Systems: All systems reviewed & are unremarkable except as noted in HPI and below (subjective) Exam Const: General: comfortable and no acute distress Neck: Neck: no JVD Resp: Effort & Inspection: normal respiratory effort Auscultation: clear to auscultation bilaterally Cardio: Rate: regular rate Rhythm: regular rhythm Heart sounds: no murmurs Skin: General skin exam: normal color Neuro: Speech: normal speech Extrem: General: no edema Psych: Mental Status: mental status grossly normal Objective Data Vital Signs Vital Signs: Vital Signs - 24 hr 11/27/21 14:00 11/27/21 16:00 11/27/21 16:00 Temperature Pulse Rate 69 54 L Respiratory Rate Blood Pressure Pulse Oximetry Oxygen Delivery Room Air 11/27/21 16:00 11/27/21 18:00 11/27/21 20:00 Temperature 36.7 C 36.6 C Pulse Rate 64 81 56 L Respiratory Rate 20 20 Blood Pressure 103/62 130/56 L Pulse Oximetry 100 100 Oxygen Delivery 11/27/21 20:00 11/28/21 00:00 11/28/21 00:00 Temperature 36.3 C L Pulse Rate 56 L 66 66 Respiratory Rate 20 20 20 Blood Pressure 123/63 Pulse Oximetry 100 98 98 Oxygen Delivery Room Air Room Air 11/27/21 20:00 11/27/21 22:00 11/28/21 00:00 Temperature Pulse Rate 64 74 69 Respiratory Rate Blood Pressure Pulse Oximetry Oxygen Delivery 11/28/21 02:00 11/28/21 03:53 11/28/21 04:00 Temperature 36.7 C Pulse Rate 85 85 88 Respiratory Rate 16 Blood Pressure 109/76 Pulse Oximetry 96 Oxygen Delivery 11/28/21 04:00 11/28/21 03:35 11/28/21 05:56 Temperature 36.7 C Pulse Rate 85 85 77 Respiratory Rate 16 16 Blood Pressure 109/76 Pulse Oximetry 95 95 Oxygen Delivery Room Air 11/28/21 08:00 Temperature 36.9 C Pulse Rate 62 Respiratory Rate 18 Blood Pressure 113/71 Pulse Oximetry 97 Oxygen Delivery Intake/Output Intake/Output: Intake & Output 11/25/21 11/26/21 11/27/21 11/28/21 23:59 23:59 23:59 23:59 Intake Total 730 830 Output Total 200 240 Balance 530 830 -240 Meds/Results Medications: Active Medications Generic Name Dose Route Start Last Admin Trade Name Nikki PRN Reason Stop Dose Admin Aspirin 81 mg 11/26/21 08:00 11/28/21 08:40 Aspirin 81 Mg Chewable Tablet PO Not Given DAILY@0800 [facility] Donepezil HCl 10 mg 11/25/21 23:15 11/27/21 20:53 Donepezil Hcl 10 Mg Table
[2021-11-28] MEDS: PANTOPRAZOLE SODIUM IV 40 MG VIAL IV PUSH (13:30)
[2021-11-28] MEDS: ATORVASTATIN 40 MG TABLET 80 MG PO (13:43)
--- NOTE | 2021-11-28 14:32 | EST_ITS ---
Patient Info Name: Arash Garcia Age: 76 years : 1945 Gender: Male Ht: 70 in Wt: 177 lbs BSA: 2.00 m2 HR: 66 bpm BP: 124 / 74 mmHg Heart Rhythm: Sinus Rhythm Exam Date: 11/28/2021 12:19 PM Exam Location: [facility] Stress Patient Status: Inpatient Admit Date: 11/25/2021 Staff Ordering Physician: Cayetano Hammond MD Attending Provider: Suzan Koenig DO Exercise Technologist: Tresa Sood CT Exercise Physician: Will Mace MD Exam Type: CA stress donovan w NM Study Info Indications I25.1 - HX OF OLD ND A regadenoson stress test was performed. Summary 1. Occasional stress-induced PACs with Lexiscan administration. 2. No abnormal ST/T wave changes with Lexiscan administration. 3. Please correlate with nuclear medicine images, reported separately. 4. No chest discomfort with stress test. Protocol: Lexiscan Stress ECG Details Stage: REST Duration (min): 0 min : 57 sec HR (bpm): 62 SBP (mmHg): 125 DBP (mmHg): 74 Stage: REST Duration (min): 20 min : 12 sec HR (bpm): 61 SBP (mmHg): 140 DBP (mmHg): 71 Stage: STAGE 1 Duration (min): 0 min : 59 sec HR (bpm): 76 SBP (mmHg): 140 DBP (mmHg): 71 Stage: RECOVERY Duration (min): 1 min : 0 sec HR (bpm): 83 SBP (mmHg): 140 DBP (mmHg): 71 Stage: RECOVERY Duration (min): 2 min : 0 sec HR (bpm): 75 SBP (mmHg): 140 DBP (mmHg): 71 Stage: RECOVERY Duration (min): 3 min : 0 sec HR (bpm): 71 SBP (mmHg): 120 DBP (mmHg): 52 Stage: RECOVERY Duration (min): 3 min : 8 sec HR (bpm): 70 SBP (mmHg): 120 DBP (mmHg): 52 Rest HR: 61 bpm Peak HR: 88 bpm Rest Sys BP: 140 mmHg Peak Sys BP: 120 mmHg Max Pred HR: 144 bpm % Max Pred HR: 61 % Target HR: 122 bpm Max RPP: 10,560 bpm*mmHg Termination Reason: Completed protocol Cardiac Symptoms: Shortness of breath Total Time: 1 min : 0 sec Rest Choi BP: 71 mmHg Peak Choi BP: 52 mmHg Total Dose: 0.4 mg Resting ECG Normal sinus rhythm. Right bundle branch block. Stress ECG No abnormal ST/T wave changes with Lexiscan administration. Arrhythmias Occasional stress-induced PACs with Lexiscan administration. Report Signatures
--- NOTE | 2021-11-28 16:30 | PM.DS ---
DS: Admitting Diagnosis Discharge Date November 28, 2021 Admitting Diagnosis Chest pain DS: Discharge Diagnosis Discharge Diagnosis (1) Non-STEMI (non-ST elevated myocardial infarction): Code(s): I21.4 - Non-ST elevation (NSTEMI) myocardial infarction Status: Acute Assessment and Plan: Appreciate cardiology consultation, trend troponin, monitor telemetry, continue heparin drip, echo reviewed Status post Brilinta loading dose followed by maintenance dose Will start high-intensity statin with LFTs resolve, continue beta-jose (2) Chest pain: Qualifiers: Chest pain type: unspecified Qualified Code(s): R07.9 - Chest pain, unspecified Code(s): R07.9 - Chest pain, unspecified Status: Inactive Assessment and Plan: Resolved, family refusing heart catheterization at this time due to dementia (3) Dementia: Code(s): F03.90 - Unspecified dementia, unspecified severity, without behavioral disturbance, psychotic disturbance, mood disturbance, and anxiety Status: Acute Assessment and Plan: Continue Aricept and Namenda (4) Transaminitis: Code(s): R74.01 - Elevation of levels of liver transaminase levels Status: Acute Assessment and Plan: Slowly resolving, unsure of etiology, right upper quadrant ultrasound and hepatitis panel both pending Plan DVT prophylaxis with heparin drip GI prophylaxis with PPI Code status full code DS: Summary Hospital Course Hospital Course: 76-year-old male patient who does have a history of dementia.? He presented to the emergency room with a significant other and his son.? The patient is a poor historian.? The patient had cut the grass today on a riding more.? After that the patient started to complain of chest pain.? According to the significant other the patient was moving his arms around stating that his arms hurt.? After few hours the patient was still complaining of chest pain and he was tired.? They took him to the urgent care.? Patient does not remember having any chest pain or complaining of it.? The patient is currently pain-free.? He was not nauseated.? He is currently sitting up in the bed without any complaints.? The patient took 4 baby aspirin prior to arrival.? At urgent care the patient was found to have a very low heart rate in the 50s.? When I assessed him in ER his heart rate was initially 50 but then it came up to the 80s.? His white count came up to 10.6.? Creatinine 1.4.? Glucose 174.? AST 209.? Troponin 13.800.? Triglycerides were 228.? The patient was given an aspirin and started on heparin drip.? Cardiology has been consulted.? EKG was read as sinus bradycardia with short VA interval.? Left axis deviation.? Left bundle branch block.? Abnormal EKG.? Chest x-ray was read as no acute cardiopulmonary disease. Echo was done that showed an EF of 45-50% with grade 1 diastolic dysfunction. No significant valvular abnormality was noted. Patient was noted to have LFTs and so right upper quadrant ultrasound was ordered showing diffuse hepatic steatosis. LFTs trended down significantly, would not recommend statin in this patient at this time. Stress test was performed that showed a large area of severe infarct involving inferior, inferolateral and anterolateral barker of the left ventricle with a normal EF of 63%. Patient remained symptom free after admission. Cardiology recommended aspirin, Brilinta, beta-jose and high-intensity statin (this was not completed due to the elevated LFTs). Patient 1st received 48 hours of heparin drip and Brilinta loading dose. Heart catheterization was recommended, patient's family declined this due to severe dementia and DNR code status. Patient was discharged in good condition with close outpatient follow-up by Cardiology and Internal Medicine. Time Spent with Patient Time attestation: Total time spent providing and/or coordinating discharge services: Exam Narrative: General: No acute
== END 2021-11-28 17:47 | disposition home or self-care (01) ==
LOC: ANHED 17:08 → ANHIMU 19:37
PROVIDERS: Emergency Medicine; Internal Medicine; Internal Medicine Cardiovascular Disease; Nurse Practitioner; Admitting Provider Family Medicine; Emergency Provider General Practice; PCP Family Medicine Adolescent Medicine; Visit Provider Student in an Organized Health Care Education/Training Program
DX: I21.4 Non-ST elevation (NSTEMI) myocardial infarction (principal); F03.90 Unspecified dementia, unspecified severity, without behavioral disturbance, psychotic disturbance, mood disturbance, and anxiety; R74.01 Elevation of levels of liver transaminase levels; R00.1 Bradycardia, unspecified; I44.7 Left bundle-branch block, unspecified; I44.4 Left anterior fascicular block; I11.0 Hypertensive heart disease with heart failure; I50.40 Unspecified combined systolic (congestive) and diastolic (congestive) heart failure; I08.3 Combined rheumatic disorders of mitral, aortic and tricuspid valves; K76.0 Fatty (change of) liver, not elsewhere classified; R94.31 Abnormal electrocardiogram [ECG] [EKG]; Z87.891 Personal history of nicotine dependence; Z79.1 Long term (current) use of non-steroidal anti-inflammatories (NSAID); Z79.899 Other long term (current) drug therapy
CPT/HCPCS: 36415; 71046; 76705; 78452; 80053; 80061; 80074; 82728; 83690; 83735; 84443; 84484; 85025; 85610; 85730; 86140; 93005; 93017; 96365; 96366; 96372; 96375; 96376; 99285; A9270; A9502; C8929; C9113; G0378; J1644; J2060; J2785; Q9957

== ENCOUNTER 2021-12-04 12:26 | Emergency (ER) | payer MEDICARE, SELFPAY ==
--- NOTE | ~2021-12-04 | US_ITS ---
EXAMINATION:US venous doppler LE BI INDICATION:Calf pain. TECHNIQUE: Multiple grayscale, color flow and Doppler images of the right and left lower extremity de ep venous systems were obtained and reviewed. COMPARISON:No prior studies for comparison. FINDINGS: The common femoral, superficial femoral and popliteal veins demonstrate normal respiratory variation, augmentation and compressibility. Color flow is also seen within the posterior tibial, pe roneal, greater saphenous and profunda veins. IMPRESSION: 1: No lower extremity deep venous thrombosis. Reviewed, dictated and finalized at location A.
[2021-12-04 12:35] VITALS: BP 139/65; PULSE 74; RESP 16; TEMP 36.5; O2SAT 98
--- NOTE | 2021-12-04 13:05 | ED.EXTPRO ---
HPI - Extremity Problem General Chief complaint: Extremity Problem,Nontraumatic Stated complaint: pain in foot/ pain in both calfs Time Seen by Provider: 12/04/21 12:43 Source: patient and other (patient's close friend who he lives with) Mode of arrival: ambulatory Limitations: dementia History of Present Illness HPI Narrative: This is a 76-year-old male that presents to the emergency department for bilateral lower extremity pain. Ongoing over the last couple of days. Patient was recently admitted to the hospital for an NSTEMI. Patient's caregiver provides most of the history as he has history of dementia. Reportedly over the last couple of days he has been complaining of pain in his lower extremities. He has been wanting to use his walker to ambulate. No recent injuries. Denies fever, erythema, warmth, edema, or numbness. Related Data Home Medications Medication Instructions Recorded Confirmed donepezil 10 mg tablet 10 mg PO QHS 11/25/21 11/25/21 Allergies Allergy/AdvReac Type Severity Reaction Status Date / Time No Known Allergies Allergy Verified 12/04/21 12:45 Review of Systems Review of Systems: CONSTITUTIONAL: Denies fever CARDIOVASCULAR: Denies chest pain SKIN: Denies rash MUSCULOSKELETAL: Reports myalgia. NEUROLOGIC: Denies numbness All systems reviewed & are unremarkable except as noted in HPI and below PMFSH Past Medical History Medical History (Updated 12/04/21 @ 14:49 by Ela Bernal PA-C) Cataract History of coronary artery disease History of malignant neoplasm of prostate HTN (hypertension) Surgical History Surgical History Hx of cataract extraction S/P TURP Family History Family History Father , Lung Cancer No problems noted. Mother , Brain Aneurysm Unknown family medical history Social History Social History Social History: The patient lives with his significant other. He is . He has 4 biological children and 1 stepchild. 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 He is a former smoker. He denies any alcohol marijuana or illicit drugs. 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 Code status full code Smoking packs per day: 2 Smoking cigarettes per day: 40.0 Years smoked: 55 Smoking pack-years: 110.00 Smoking status: Former smoker Tobacco type: cigarettes Second hand tobacco smoke exposure: Yes Smoking end date: 02/26/14 Alcohol intake: former Drinks per week: 1 Substance use: never Substance use type: does not use Additional living arrangements comments: Lives with Girlfriend Gender identity (if verbalized by the patient): Male Sexual Orientation (if Verbalized by the Patient): Straight or Heterosexual Spiritual care concerns: No Agree to blood products: Yes Exam Narrative: GENERAL: Elderly, well-nourished, and in no acute distress. HEAD: Normocephalic, atraumatic. EYES: EOMI. CHEST: No respiratory distress HEART: Regular rate EXTREMITIES: Normal range of motion. No edema, erythema or warmth. Normal DP pulses. Normal sensation SKIN: Warm, dry, no rash. NEURO: No focal deficits. Alert and oriented x3. PSYCH: Normal mood and affect Course Vital Signs Vital signs: Vital Signs Temperature 97.7 F 12/04/21 12:35 Pulse Rate 74 12/04/21 12:35 Respiratory Rate 16 12/04/21 12:35 Blood Pressure 139/65 12/04/21 12:35 Pulse Oximetry 98 12/04/21 12:35 Temperature 97.7 F 12/04/21 12:35 Pulse Rate 61 12/04/21 13:47 Respiratory Rate 18 12/04/21 13:47 Blood Pressure 113/69 12/04/21 13:47 Pulse Oximetry 100 12/04/21 13:47 MDM - Extremity (Nontraumatic) MDM Narrative Medical decision making narrative: Patient presents to the ER for lower extremity myalgias present over the last couple of days. He is afebrile an
[2021-12-04 13:17] VITALS: PULSE 63; RESP 18; O2SAT 100
[2021-12-04 13:25] LABS: Basophils Percent Auto 0.2 % (0.2-1.2); Eosinophils Absolute Auto 0.1 K/mm3 (0-0.3); Eosinophils Percent Auto 0.4 % (0-4.4); Hematocrit 36.6 % (42.0-52.0); Hemoglobin 12.7 g/dL (14.0-18.0); Immature Granulocyte Absolute 0.06 K/mm3 (0.00-0.031); Immature Granulocyte Percent A 0.5 % (0-0.5); Lymphocytes Absolute Auto 0.97 K/mm3 (0.9-3.2); Lymphocytes Percent Auto 7.6 % (18.3-44.2); Mean Corpuscular HGB Conc 34.7 g/dl (32-36); Mean Corpuscular Hemoglobin 32.6 pg (26-34); Mean Corpuscular Volume 94.1 fl (80-100); Monocytes Absolute Auto 1.1 K/mm3 (0.1-0.6); Monocytes Percent Auto 8.8 % (2.6-8.5); Neutrophils Absolute Auto 10.6 K/mm3 (1.3-6.7); Neutrophils Percent Auto 82.5 % (45.5-73.1); Platelet Count Result 200 k/mm3 (150-375); Red Blood Count 3.89 M/mm3 (4.6-6.20); Red Cell Distribution Width 13.1 % (11.5-14.5); White Blood Count 12.8 K/mm3 (4.5-10.0)
[2021-12-04 13:37] LABS: Anion Gap 8 mmol/L (8-16); Blood Urea Nitrogen 21 mg/dL (9-20); Calcium 8.8 mg/dL (8.4-10.2); Carbon Dioxide 26 mmol/L (22-30); Chloride 107 mmol/L (98-107); Estimated CRCL calculation 45 ml/min; Estimated Glomerular Filt Rate 54; Glucose 120 mg/dL (65-110); Magnesium 2.5 mg/dL (1.6-2.3); Sodium 141 mmol/L (137-145)
[2021-12-04 13:47] VITALS: BP 113/69; PULSE 61; RESP 18; O2SAT 100
[2021-12-04 14:12] LABS: Creatine Kinase 112 U/L (55-170)
[2021-12-04 14:37] LABS: Alanine Aminotransferase 42 U/L (6-50); Albumin Level 4.1 g/dL (3.5-5.1); Alkaline Phosphatase 103 U/L (38-126); Aspartate Amino Transferase 41 U/L (17-59); Bilirubin,Total 1.2 mg/dL (0.2-1.3)
[2021-12-04 15:04] VITALS: BP 129/65; PULSE 61; RESP 17; O2SAT 100
== END 2021-12-04 15:05 | disposition home or self-care (01) ==
PROVIDERS: Physician Assistant; Emergency Provider Emergency Medicine; PCP Family Medicine Adolescent Medicine
DX: M79.10 Myalgia, unspecified site (principal); F03.90 Unspecified dementia, unspecified severity, without behavioral disturbance, psychotic disturbance, mood disturbance, and anxiety; I25.2 Old myocardial infarction; I25.10 Atherosclerotic heart disease of native coronary artery without angina pectoris; I10 Essential (primary) hypertension; Z85.46 Personal history of malignant neoplasm of prostate; Z98.49 Cataract extraction status, unspecified eye; Z87.891 Personal history of nicotine dependence
CPT/HCPCS: 36415; 80048; 80076; 82550; 83735; 85025; 93970; 99284

== ENCOUNTER 2022-05-18 00:31 | Day surgery (SDC) | payer MEDICARE, SELFPAY ==
--- NOTE | 2022-05-12 11:15 | PC.NURSE ---
Report to the Outpatient Waiting Room, entrance under the green pavilion located off [address], at time 0900 on date __05/18/22 . Planned Procedure Time: _1000 . Time changes happen often and if your time is changed the preop area will call you the afternoon before. - You and your visitor will be asked to self-screen and do not enter if you have any COVID symptoms. - Only one visitor is requested with a max of two and NO children visitors are allowed at this time. - The patient visitor may be requested to leave or wait in car when not with patient due to distancing restrictions. - A mask is optional within the hospital at this time. LIGHT BREAKFAST Patients may have clear liquids (water, carbonated beverages, clear teas, apple juice) until 3 hours prior to surgery with a maximum of 20 ounces. - No food from midnight until time of surgery - Infants may have breast milk until 4 hours before surgery, infant formula 6 hours prior to surgery. - Children will be allowed to drink immediately following surgery. If applicable, please bring a bottle or sippy cup to assist with drinking. Juice, water, soda, and popsicles are readily available. For infants on formula, please bring formula the day of surgery. Pacifiers are allowed. Take the following medications with a SIP of water the morning of surgery: ____ALL ROUTINE MORNING MEDS MAY CONTINUE ASPIRIN AND BRILINTA DO NOT STOP ANY OF YOUR OTHER PRESCRIPTION MEDICATIONS PRIOR TO SURGERY ?EXCEPT THE FOLLOWING Medications to discontinue per physician Date to take last dose Please no make-up, nail irish, hairspray, perfume, deodorant, or body powder the day of surgery. No jewelry (including any body piercings) or valuables the day of surgery, leave them at home. Please take a shower or bath the night before, or the morning of, surgery with an antibacterial soap. Wear comfortable, loose fitting clothing. Children are encouraged to wear pajamas. - Jewelry must be removed prior to entering the operating room. Rings and piercings that are not removed may be cut off. - The hospital will not accept responsibility for valuables. - Please leave all valuables, including medications, at home the day of surgery. If you are going home after surgery, a licensed dedicated truck driver must drive you home. - NO public transportation without another adult if you receive anesthesia. - We recommend that an adult stay with you for 24 hours following discharge. - We also recommend that you do not drive, make important decision, drink alcoholic beverages, or take any drugs that were not prescribed by your health care provider for at least 24 hours after your discharge time. For Pediatric surgeries, we recommend two adults accompany the child home. Follow any additional instructions given to you from your surgeon. If you or anyone in your household have experienced Covid symptoms in the past week, please notify your surgeon or the nurse liaison at the phone number below for possible testing. Telephone instructions given to _[facility] and asked if any additional questions and then verbalized understanding. Patient advised to call surgeon office or pre surgery nurse liaison [phone] if any additional questions.
[2022-05-12 11:18] VITALS: BMI 26.6
[2022-05-18] VITALS (11 sets, daily range): BP systolic 127–165; BP diastolic 66–98; PULSE 56–62; RESP 14–18; TEMP 36.1; O2SAT 96–100
--- NOTE | 2022-05-18 07:12 | WPDHPUPDATE1 ---
History and Physical Update Update Date/Time: 05/18/22 07:12 History and Physical has been reviewed, including an updated exam of the patient. There are NO changes in the patient's condition. Risks, benefits, and alternatives have been discussed and questions answered. Patient agrees to proceed with procedure.
[2022-05-18] MEDS: BALANCED SALT SOLN OPHTH IRRIG 30 ML BTL RIGHT EYE (10:00)
[2022-05-18] MEDS: LIDO 1%/EPINEPHRINE 1:100,000 50 ML VIAL 30 ML INFILTRATE (10:25)
[2022-05-18] MEDS: BACITRACIN OINTMENT 15 GM TUBE 1 APPLIC TOPICAL (10:26)
--- NOTE | 2022-05-18 11:02 | W.PM.PROC2 ---
Procedure Note - Detailed Date of Procedure 05/18/22 Pre-op Diagnosis ulcerated neoplasm behind right ear Post-op Diagnosis Other (Basal cell carcinoma behind the right ear) Procedure Performed 3 cm excision of basal cell carcinoma behind the right ear with frozen section and full-thickness skin graft 9 sq cm Surgeon Hemanth Olmstead MD Child Development Director [facility] Anesthesia Local Description of Procedure The site behind the right ear was marked with the patient's consent in the holding area. He was then taken to the operating where he was placed supine on the operating table. The right side of the face neck upper shoulder were prepped and draped in the usual fashion. The site was carefully examined and a marking placed for the excision. This area has previously been operated and has some scar tissue but also a nodular component. Area was widely infiltrated with 1% lidocaine with epinephrine. The ellipse was incised through the full-thickness of skin and taken from the underlying subcutaneous tissue with sharp and blunt dissection. The most superior aspect was marked with a suture for 12 o'clock. The specimen was sent to frozen section and the pathologist reports that the tumor is basal cell carcinoma all margins were free. The the site produce some slight ooze while we were waiting. The patient is on Brilinta. A donor site for skin graft was identified on the lower right lateral neck. This area was marked infiltrated with 1% lidocaine with epinephrine the graft was harvested. The donor site was undermined slightly and the wound closed with intradermal 4-0 Vicryl suture and later with glue. The graft was defatted and inset with 5 0 nylon quilting stitches were also placed. The wound was dressed with bacitracin ointment a gauze patch. The glue was applied to the donor site. The patient was discharged from the operating stable condition. He is being discharged home with a prescription for cephalexin for 5 days and hydrocodone 5/325 number 4. Estimated Blood Loss 20 Drains No Packing No Pathology Yes Complications No immediate complications Condition Stable Disposition Same day
== END 2022-05-18 11:03 | disposition home or self-care (01) ==
PROVIDERS: PCP Family Medicine Adolescent Medicine; Visit Provider Plastic Surgery
PROC: (CPT 11623; principal; 2022-05-18 09:00)
DX: C44.41 Basal cell carcinoma of skin of scalp and neck (principal); I51.9 Heart disease, unspecified; Z79.82 Long term (current) use of aspirin; Z79.01 Long term (current) use of anticoagulants
CPT/HCPCS: 11623; 15220; 88305; 88331; 88332; A9270

== ENCOUNTER 2024-09-20 19:10 | Emergency (ER) | payer MEDICARE, SELFPAY ==
[2024-09-20] VITALS (10 sets, daily range): BP systolic 80–145; BP diastolic 53–65; PULSE 41–84; RESP 12–20; TEMP 36.7; O2SAT 98–100
--- NOTE | ~2024-09-20 | CT_ITS ---
EXAMINATION: CT abd pelvis lumbar w con DATE: 09/20/2024 21:19 INDICATION: LBP, low BP; w/ L spine recon pls thx! TECHNIQUE: Computed tomography (CT) of the abdomen and pelvis and lumbar spine was performed with 100 mL Omnipaque-350 intravenous contrast. Automated exposure control and iterative reconstruction techn Mipagarue were employed. The dose-length product was 372.21 mGy-cm. COMPARISON: 10/01/2013. FINDINGS: Lower thorax: Coronary calcifications. Dependent atelectasis. Small right lower lobe air cyst noted m edially. Calcified left lower lobe granuloma. Liver: Mild periportal edema. Biliary/Gallbladder: Gallbladder is normal. No bile duct dilation. Pancreas: Fatty atrophy. Spleen: Normal. Adrenals:No mass. Kidneys: No suspicious mass, obstructing stone, or hydronephrosis. Punctate nonobstructing right uppe r pole calcification. Subcentimeter right lower pole hypodensity, too small to characterize but most likely represents a cyst. GI tract: Mild distal esophageal, gastric, and proximal duodenal wall edema. No small or large bowel dilation. Normal appendix. Diverticulosis without diverticulitis. Mesentery/Peritoneum: No ascites, mass, or free air. Retroperitoneum: No mass. Atherosclerotic calcifications of intra-abdominal arterial vessels. There i s severe atherosclerotic disease of the abdominal aorta, with multiple ulcerative appearing areas of plaque. Severe stenosis in the proximal left common femoral artery. Pelvis: Bladder wall thickening with mild inflammatory change, with asymmetric thickening of the ante rolateral bladder wall. Left and right posterior bladder diverticula, each containing small calcifica tions. Prostatomegaly. Soft Tissues: Small uncomplicated fat-containing umbilical and bilateral inguinal hernias. Bones: No acute osseous finding. LUMBAR SPINE: 5 nonrib-bearing lumbar-type vertebral bodies. Pedicles intact. Normal vertebral body alignment. Vert ebral body heights preserved. Multilevel degenerative disc disease, severe at L5-S1. Severe right L5- S1 neural foraminal narrowing secondary to degenerative changes. No severe central canal narrowing. M ultilevel facet arthropathy. Interspinous narrowing in the lower lumbar spine. IMPRESSION: Mild esophagitis/gastritis. Mild duodenitis. Mild periportal edema, presumably secondary to the inflammatory changes in the distal stomach and duo denum. Acute hepatitis could also be considered in the differential. Suggestion of asymmetric bladder wall thickening in the anterolateral bladder, consider referral for cystoscopy to exclude a bladder mass. Cystitis and/or chronic bladder wall thickening from obstruction related to prostatomegaly. Posterior bladder diverticula, each containing small stones. Severe ulcerative atherosclerotic abdominal aortic disease. Severe atherosclerotic stenosis in the left common femoral artery. No acute fracture or traumatic malalignment detected in the lumbar spine. Reviewed, dictated and finalized at location K. IMPRESSION: Mild esophagitis/gastritis. Mild duodenitis. Mild periportal edema, presumably secondary to the inflammatory changes in the distal stomach and duodenum. Acute hepatitis could also be considered in the di fferential. Suggestion of asymmetric bladder wall thickening in the anterolateral bladder, consider referral for cystoscopy to exclude a bladder mass. Cystitis and/or chronic bladder wall thickening from obstruction related to pro statomegaly. Posterior bladder diverticula, each containing small stones. Severe ulcerative atherosclerotic abdominal aortic disease. Severe atherosclerotic stenosis in the left common femoral artery. No acute fracture or traumatic malalignment detected in the lumbar spine.
--- OUTSIDE RECORDS SUMMARY | 2024-09-20 19:11 | XMS_ITS | Clinical Summary ---
Author Organization [facility] Address [facility] [place] [address] Care Team Providers Care Epidemiology Internship Name Role Phone None, Provider Primary Care Provider Unavaila ble Allergies No known active allergies Social History Tobacco Use Types Packs/Day Years Used Date Smoking Tobacco: Never Assessed Sex and Gender Information Value Date Recorded Sex Assigned at Not on file Legal Sex Male 12:26 PM CDT Gender Identity Not on file Sexual Orientation Not on file Last Filed Vital Signs Vital Sign Reading Time Taken Comments Blood Pressure 140/88 12/17/2021 2:19 PM CDT Pulse 68 12/17/2021 2:19 PM CDT Temperature 36.6 C (97.8 F) 12/17/2021 2:19 PM CDT Respiratory Rate 20 12/17/2021 2:19 PM CDT Oxygen Saturation 99% 12/17/2021 2:19 PM CDT Inhaled Oxygen Concentration - - Weight 77.1 kg (170 lb) 12/17/2021 12:52 PM CDT Height 180.3 cm (5' 11) 12/17/2021 12:52 PM CDT Body Mass Index 23.71 12/17/2021 12:52 PM CDT Plan of Treatment Health Maintenance Due Date Last Done Comments Hepatitis C 11/18/1963 Zoster Vaccines (1 of 2) 11/18/1995 Annual Medicare Wellness Visit 2010 Pneumococcal Vaccine: 50+ Years (2 of 2 - PCV) 11/20/2014 11/20/2013 RSV Immunization or 60+ Years (1 - 1-dose 75+ series) 2020 COVID-19 Vaccine (3 - 2023-2 5 season) 2023 12/25/2020, 05/03/2020 DTaP, Tdap and Td Vaccines ( 2 - Td or Tdap) 11/21/2023 11/20/2013 Meningococcal B Vaccine Aged Out No l onger eligible based on patient's age to complete this topic Meningococcal Vaccine Aged Out No stephy beka eligible based on patient's age to complete this topic RSV Immunizations Under 20 Months Aged Out No longer eligible b ased on patient's age to complete this topic Insurance HUMAN Care Teams Epidemiology Internship Relationship Specialty Start Date End Date None, Provider, PCP - General UNKNOWN PHYSICIAN SPECIALTY 12/17/21
--- NOTE | 2024-09-20 19:28 | ECG_ITS ---
Test Date: 2024-09-20 20:05:43 Measurements Intervals [place] Rate: 47 P: 36 WY: 144 QRS: -41 QRSD: 107 T: -3 QT: 474 QTc: 420 Interpretive Statements SINUS BRADYCARDIA LEFT AXIS DEVIATION [QRS AXIS < -30] LOW QRS VOLTAGE IN PRECORDIAL LEADS [QRS DEFLECTION < 1.0 mV IN CHEST LEADS] No previous ECG available for comparison Electronically Signed On 09-21-2024 14:21:24 CDT by Sudhakar Flood M.D.
[2024-09-20 19:48] LABS: Hematocrit 34.8 % (42.0-52.0); Hemoglobin 11.6 g/dL (14.0-18.0); Immature Granulocyte Percent A 0.2 % (0-0.5); Lymphocytes Absolute Auto 1.12 K/mm3 (0.9-3.2); Mean Corpuscular HGB Conc 33.3 g/dl (32-36); Mean Corpuscular Hemoglobin 30.9 pg (26-34); Mean Corpuscular Volume 92.8 fl (80-100); Nucleated Red Blood Cells Absolute Auto 0.000 K/mm3 (0.0-0.012); Nucleated Red Blood Cells Perc 0.0 % (0.0-0.2); Platelet Count Result 158 k/mm3 (150-375); Red Blood Count 3.75 M/mm3 (4.6-6.20); White Blood Count 6.1 K/mm3 (4.5-10.0)
[2024-09-20] MEDS: LACTATED RINGERS 1,000 ML 999 ML IV CONT (19:52)
--- OUTSIDE RECORDS SUMMARY | 2024-09-20 20:01 | XMS_ITS | Clinical Summary ---
Author Organization [facility] Address [facility] [place] [address] Care Team Providers Care Binding Cutter [employer]oth Name Role Phone None, Provider Primary Care [...] complete this topic Insurance HUMAN Care Teams Binding [employer] Relationship Specialty Start Date End Date None, Provider, PCP - General UNKNOWN PHYSICIAN SPECIALTY 12/17/21
[2024-09-20 20:11] LABS: Alanine Aminotransferase 17 U/L (6-50); Albumin Level 3.8 g/dL (3.5-5.1); Alkaline Phosphatase 117 U/L (38-126); Anion Gap 8 mmol/L (4-12); Aspartate Amino Transferase 36 U/L (17-59); Bilirubin,Total 0.9 mg/dL (0.2-1.3); Blood Urea Nitrogen 27 mg/dL (9-20); Calcium 9.1 mg/dL (8.4-10.2); Carbon Dioxide 26 mmol/L (22-30); Chloride 108 mmol/L (98-107); Estimated CRCL calculation 50 ml/min; Estimated Glomerular Filt Rate > 60; Glucose 137 mg/dL (65-110); Potassium 3.7 mmol/L (3.4-5.0); Sodium 142 mmol/L (137-145); Total Protein 7.3 g/dL (6.3-8.2)
[2024-09-20 23:03] LABS: Add Urine Microscopic? YES; Appearance Urine Clear (Clear); Glucose Urine UA Negative (Negative); Leukocyte Esterase Ur Negative LEU/UL (Negative); Nitrate Urine Negative (Negative); Non Pathogenic Casts 0-2; Specific Grav Ur > 1.045 (1.001-1.035)
--- NOTE | 2024-09-21 00:04 | PC.NURSE ---
Attempted to call report back to [facility] and told that there are no nurses on staff at night, but will have one call here to get report. Discussed dc instructions with pt's son.
--- NOTE | 2024-09-21 01:48 | ED_ITS ---
HPI - Back Pain/Injury General Chief Complaint: Back Pain/Injury Stated Complaint: back pain Time Seen by Provider: 09/20/24 19:28 History of Present Illness HPI Narrative: Patient presents with low back pain, he had taken a fall about 10 days ago, and the back pain has been going on for about a week. No chest pain, abdominal pain, dysuria, per prison staff, patient has not been sleeping well and has been walking all over the prison for multiple days. He tells me he thinks that the low back pain is because he has been bending over a lot. Related Data Allergies Allergy/AdvReac Type Severity Reaction Status Date / Time No Known Allergies Allergy Verified 09/20/24 19:23 Review of Systems 2 Review of Systems: All systems reviewed & are unremarkable except as noted in HPI and below PMFSH Past Medical History Medical History History of coronary artery disease HTN (hypertension) Transaminitis Non-STEMI (non-ST elevated myocardial infarction) (10/2021) Cataract History of malignant neoplasm of prostate Surgical History Surgical History S/P TURP Hx of cataract extraction Family History Family History Father , Lung Cancer No problems noted. Mother , Brain Aneurysm Unknown family medical history Social History Social History (Updated 04/22/24 @ 12:31 by Rochelle Bourne APRN) Social History: He is in assisted living. He has 4 biological children and 1 stepchild. 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 He is a former smoker. He denies any alcohol marijuana or illicit drugs. 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 Code status full code Smoking packs per day: 2.5 Smoking cigarettes per day: 50.0 Years smoked: 32 Smoking pack-years: 80.00 Smoking status: Former smoker Tobacco type: cigarettes Second hand tobacco smoke exposure: Yes Smoking end date: 02/27/92 Alcohol intake: former Drinks per week: 1 Substance use: never Substance use type: does not use Lack of Transportation: No Lack of Food: Never True Current Housing: I Have Housing Concerned About Future Housing: No Difficulty Paying Gas/Electric Bills: Decline to Answer Difficulty Paying for Meds: Decline to Answer Currently Unemployed: YES Education: Decline to Answer Difficulty w/ Childcare or Family Care: No Living arrangements: assisted living Additional living arrangements comments: Lives with Girlfriend Occupation/Education: retired Gender identity (if verbalized by the patient): Male Sexual Orientation (if Verbalized by the Patient): Straight or Heterosexual Spiritual care concerns: No Agree to blood products: Yes Exam 2 Narrative: EXAMINATION OF ORGAN SYSTEMS/BODY AREAS: Constitutional: Vital signs per nursing GENERAL:[No acute distress, non-toxic appearing.] HEAD: Normal with no signs of head trauma. EYES: EOMI, conjunctiva normal ENT: Hearing grossly intact LUNGS: Nonlabored breathing. HEART: [Regular rate and rhythm] ABD: [Soft], [nontender to palpation] EXT: Normal range of motion; some slight tenderness palpation lower back RECTAL: brown stool guaiac neg SKIN: [No rashes or lesions.] NEURO: [Alert and oriented x 3. No gross focal sensory or strength deficits.] PSYCH: Normal affect Course Vital Signs Vital signs: Vital Signs Temperature 98.1 F 09/20/24 19:12 Pulse Rate 84 09/20/24 19:12 Respiratory Rate 20 09/20/24 19:12 Blood Pressure 80/53 L 09/20/24 19:12 Pulse Oximetry 98 09/20/24 19:12 Oxygen Delivery Room Air 09/20/24 19:12 Temperature 98.1 F 09/20/24 19:12 Pulse Rate 42 L 09/20/24 23:46 Respiratory Rate 12 09/20/24 23:46 Blood Pressure 118/53 L 09/20/24 23:46 Pulse Oximetry 100 09/20/24 22:16 Oxygen Delivery Room Air 09/20/24 19:12 MDM - Back Pain/Injury MDM Narrative Medical decision making narrative: Patient presents with low back pain, he had a recent injury and states he has also been bending over a lot. His son is also concerned he has not been eating or drinking very much. Initially blood pressure was low however it was improved on recheck, and I did give additional IV fluids. Labs within acceptable limits though BUN slightly elevated which may be due to dehydrated. CT abdomen pelvis with focus on lumbar spine thankfully does not show any acute osseous abnormality, there is some signs of gastritis/duodenitis, possible cystitis. UA is clear. Patient without stomach pain however I will start him on famotidine and pain medication and lidocaine patches for his low back pain with close follow-up to his PCP. Son states he already has an appointment coming up in the next 2 weeks. Strict return precautions. Lab Data 09/20/24 19:38 09/20/24 19:38 Labs: Lab Results 09/20/24 09/20/24 Range/Units 19:38 22:51 WBC 6.1 (4.5-10.0) K/mm3 RBC 3.75 L (4.6-6.20) M/mm3 Hgb 11.6 L (14.0-18.0) g/dL Hct 34.8 L (42.0-52.0) % MCV 92.8 (80-100) fl MCH 30.9 (26-34) pg MCHC 33.3 (32-36) g/dl RDW 13.4 (11.5-14.5) % Plt Count 158 (150-375) k/mm3 MPV 10.3 (7.4-10.4) fl Immature Gran % (Auto) 0.2 (0-0.5) % Neut % (Auto) 65.0 (45.5-73.1) % Lymph % (Auto) 18.2 L (18.3-44.2) % [place] % (Auto) 9.4 H (2.6-8.5) % Eos % (Auto) 6.7 H (0-4.4) % Baso % (Auto) 0.5 (0.2-1.2) % Lymph # (Auto) 1.12 (0.9-3.2) K/mm3 [place] # (Auto) 0.6 (0.1-0.6) K/mm3 Eos # (Auto) 0.4 H (0-0.3) K/mm3 Baso # (Auto) 0.0 (0.0-0.1) K/mm3 Abs Immat Gran (auto) 0.01 (0.00-0.031) K/mm3 Absolute Neuts (auto) 4.0 (1.3-6.7) K/mm3 Absolute Nucleated RBC 0.000 (0.0-0.012) K/mm3 Nucleated RBC % 0.0 (0.0-0.2) % Sodium 142 (137-145) mmol/L Potassium 3.7 (3.4-5.0) mmol/L Chloride 108 H (98-107) mmol/L Carbon Dioxide 26 (22-30) mmol/L Anion Gap 8 (4-12) mmol/L BUN 27 H (9-20) mg/dL Creatinine 1.09 (0.7-1.3) mg/dL Estim Creat Clear Calc 50 ml/min Estimated GFR > 60 (59 - ) Glucose 137 H (65-110) mg/dL Calcium 9.1 (8.4-10.2) mg/dL Total Bilirubin 0.9 (0.2-1.3) mg/dL AST 36 (17-59) U/L ALT 17 (6-50) U/L Alkaline Phosphatase 117 (38-126) U/L Total Protein 7.3 (6.3-8.2) g/dL Albumin 3.8 (3.5-5.1) g/dL Urine Color Yellow (Yellow) Urine Appearance Clear (Clear) Urine pH 6.0 (5.0-9.0) Ur Specific [place] > 1.045 H (1.001-1.035) Urine Protein 1+ H (Negative) mg/dL Urine Glucose (UA) Negative (Negative) mg/dL Urine Ketones Trace H (Negative) mg/dL Ur Blood (Man) Non-hemolyzed trace (Negative) Urine Nitrate Negative (Negative) Urine Bilirubin Negative (Negative) Urine Urobilinogen 2.0 H (<2.0) mg/dL Leukocyte Esterase Rfl Negative (Negative) MELONY/UL Urine RBC 0-2 (0-2) /hpf Urine WBC 0-5 (0-3) /hpf Ur Squamous Epith Cells None seen (Few) /hpf Urine Bacteria None seen /hpf Urine Casts 0-2 Discharge Plan Discharge Clinical Impression: Low back strain, Dehydration Patient Disposition: NH Detention/Asst Living Condition: Stable Instructions: Low Back Strain (ED) Additional Instructions: Please follow up with your doctor; you can always return for any further issues. Patient Language: Sierra Leonean Prescriptions: New acetaminophen [Tylenol Extra Strength] 500 mg tablet 1,000 mg PO Q6H PRN (Reason: pain) Qty: 50 0RF famotidine 20 mg tablet 20 mg PO DAILY Qty: 30 0RF lidocaine 5 % adhesive patch,medicated 1 patch topical DAILY Qty: 15 0RF Rx Instructions: leave on most painful area for up to 12 hrs No Action aspirin [Children's Aspirin] 81 mg tablet,chewable 81 mg PO DAILY@0800 30 Days Qty: 30 2RF donepezil 5 mg tablet 5 mg PO QHS Qty: 90 3RF nitroglycerin 0.4 mg tablet, sublingual 0.4 mg sublingual Q5M PRN (Reason: Chest Pain) Qty: 25 1RF Rx Instructions: do not exceed 3 doses per episode atorvastatin 80 mg tablet 80 mg PO QHS Qty: 90 3RF ipratropium bromide 42 mcg (0.06 %) spray,non-aerosol See Rx Instructions intranasal ONCE Qty: 15 5RF Rx Instructions: Use at least once daily, may use three times daily if needed. metoprolol succinate [Toprol XL] 25 mg tablet extended release 24 hr 25 mg PO QAM 30 Days Qty: 30 5RF montelukast 10 mg tablet 10 mg PO DAILY Qty: 30 7RF quetiapine 100 mg tablet 100 mg PO QHS Qty: 30 3RF memantine 21 mg capsule,sprinkle,ER 24hr 21 mg PO DAILY Qty: 90 3RF Follow-up/Referrals: Navi Worley MD [Primary Care Provider] -
== END 2024-09-21 00:13 ==
PROVIDERS: Emergency Provider Emergency Medicine; PCP Family Medicine Adolescent Medicine
DX: S39.012A Strain of muscle, fascia and tendon of lower back, initial encounter (principal); E86.0 Dehydration; W19.XXXA Unspecified fall, initial encounter; I10 Essential (primary) hypertension; I25.10 Atherosclerotic heart disease of native coronary artery without angina pectoris; I25.2 Old myocardial infarction; Z85.46 Personal history of malignant neoplasm of prostate; Z87.891 Personal history of nicotine dependence
CPT/HCPCS: 36415; 72132; 74177; 80053; 81001; 85025; 93005; 96360; 99284; J7120; Q9967

== ENCOUNTER 2024-11-04 16:04 | Emergency (ER) | payer MEDICARE, SELFPAY ==
--- NOTE | ~2024-11-04 | CT_ITS ---
EXAMINATION: CT brain wo nikkie, 11/04/2024 17:17 CDT HISTORY: trauma COMPARISON: No comparisons available. Technique: Axial images obtained of the brain without contrast. One or more of the following dose reduction techniques were used: automated exposure control, adjustment of the mA and/or kV according to patient size, use of iterative reconstruction technique. Findings: No acute infarct or parenchymal hemorrhage. No abnormal mass or mass effect. No midline shift. No extra-axial fluid collections. No hydrocephalus. Mastoid air cells unremarkable. Sinuses and orbits unremarkable. No acute fracture. No significant facial or scalp soft tissue swelling evident. No radiopaque foreign body is seen. Impression: 1.No acute intracranial abnormality. Reviewed, dictated and finalized at location A. Impression: 1.No acute intracranial abnormality.
--- NOTE | ~2024-11-04 | CT_ITS ---
EXAMINATION: CT cervical spine wo con COMPARISON: None HISTORY: trauma TECHNIQUE: Axial images were obtained through the spine without IV contrast. Coronal, sagittal reconstruction images were obtained from the axial views. CT scan performed using dose optimization techniques including the following automated exposure control; adjustment of mA and/or kV; use of iterative reconstruction technique. Automatic exposure control was used to reduce radiation dose. Permanent radiation dose record is archived to PACS. FINDINGS: Grade 1 anterolisthesis of C3 on C4, no fracture identified. Severe loss of disc at C4-5 C5-6 and C6-7 with moderate to severe canal and foraminal stenosis with fusion of the posterior elements noted at multiple levels, outpatient MRI is suggested. Soft tissues unremarkable. Impression: No acute abnormality. Reviewed, dictated and finalized at location A. Impression: No acute abnormality.
[2024-11-04 16:03] VITALS: BP 112/74; PULSE 52; RESP 20; TEMP 36.7; O2SAT 100
--- NOTE | 2024-11-04 16:24 | ED_ITS ---
HPI - General Adult General Chief complaint: Fall Stated complaint: fall Time Seen by Provider: 11/04/24 16:09 History of Present Illness HPI narrative: 78-year-old male presents to the emergency department for evaluation after having a ground level fall. Patient is in a memory care unit. Patient does not have recall of the fall. Patient's only complaint is abrasion to his left head. Patient denies any other pain or injury. Patient has prior history of hypertension, transaminitis, in stable the, prostate cancer Related Data Allergies Allergy/AdvReac Type Severity Reaction Status Date / Time No Known Allergies Allergy Verified 10/31/24 07:24 Review of Systems Review of Systems: All systems reviewed & are unremarkable except as noted in HPI and below PMFSH Past Medical History Medical History (Updated 11/04/24 @ 17:48 by Slim Sinha MD) BMI 23.0-23.9, adult History of coronary artery disease HTN (hypertension) Transaminitis Non-STEMI (non-ST elevated myocardial infarction) (10/2021) Cataract History of malignant neoplasm of prostate Surgical History Surgical History S/P TURP Hx of cataract extraction Family History Family History Father , Lung Cancer No problems noted. Mother , Brain Aneurysm Unknown family medical history Social History Social History (Updated 10/31/24 @ 11:34 by KRISTINA Berumen) Social History: He is in assisted living. He has 4 biological children and 1 stepchild. He is retired from the [employer]. He is a former smoker. He denies any alcohol marijuana or illicit drugs. He denies any power criminal defense attorney. Code status full code Smoking packs per day: 2.5 Smoking cigarettes per day: 50.0 Years smoked: 32 Smoking pack-years: 80.00 Smoking status: Former smoker Tobacco type: cigarettes Second hand tobacco smoke exposure: Yes Smoking end date: 02/27/92 Alcohol intake: former Drinks per week: 1 Substance use: never Substance use type: does not use Do You Feel Safe in your Home?: Yes Lack of Transportation: No Lack of Food: Never True Current Housing: I Have Housing Concerned About Future Housing: No Difficulty Paying Gas/Electric Bills: No Difficulty Paying for Meds: No Currently Unemployed: YES Education: Grade School Difficulty w/ Childcare or Family Care: No Living arrangements: assisted living Occupation/Education: retired 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 HEAD: normocephalic, left-sided posterior scalp abrasion. EYES: PERRLA/EOMI, conjunctivae clear. NOSE: Normal no drainage EARS:TMS clear with good light reflex. THROAT: Pharynx clear, no exudate. NECK: Supple. No adenopathy, no masses. RESPIRATORY: Airway patent, respirations nonlabored. Clear to auscultation bilaterally, no rales, rhonchi, wheezing. CARDIOVASCULAR: Regular rate and rhythm without murmurs rubs or gallops. ABDOMINAL: Soft, nontender, nondistended, normal bowel sounds MUSCULOSKELETAL: Moves all extremities. Strength/ROM intact, No edema, No calf tenderness. NEURO: Alert. Cranial nerves II through XII intact. Good gait. Good coordination Course Vital Signs Vital signs: Vital Signs Temperature 98.1 F 11/04/24 16:03 Pulse Rate 52 L 11/04/24 16:03 Respiratory Rate 20 11/04/24 16:03 Blood Pressure 112/74 11/04/24 16:03 Pulse Oximetry 100 11/04/24 16:03 Oxygen Delivery Room Air 11/04/24 16:03 Temperature 98.1 F 11/04/24 16:03 Pulse Rate 85 11/04/24 18:31 Respiratory Rate 16 11/04/24 18:31 Blood Pressure 110/72 11/04/24 18:31 Pulse Oximetry 100 11/04/24 18:31 Oxygen Delivery Room Air 11/04/24 16:03 Medical Decision Making MDM Narrative Medical decision making narrative: 70-year-old male presents emergency department for evaluation after having a ground level fall and head injury. Patient does have an abrasion on his left posterior scalp that is not the to be repaired. Patient's head neck CT were negative for acute findings. On re-evaluation patient continues to deny any pain or complaints. Patient was discharged back to his care facility. Differential Diagnosis Differential Diagnosis: Subdural hematoma, subarachnoid hemorrhage, cervical spine fracture, skull frac ture Vital Signs Vital Signs: Vital Signs Temperature 98.1 F 11/04/24 16:03 Pulse Rate 52 L 11/04/24 16:03 Respiratory Rate 20 11/04/24 16:03 Blood Pressure 112/74 11/04/24 16:03 Pulse Oximetry 100 11/04/24 16:03 Oxygen Delivery Room Air 11/04/24 16:03 Temperature 98.1 F 11/04/24 16:03 Pulse Rate 85 11/04/24 18:31 Respiratory Rate 16 11/04/24 18:31 Blood Pressure 110/72 11/04/24 18:31 Pulse Oximetry 100 11/04/24 18:31 Oxygen Delivery Room Air 11/04/24 16:03 Imaging Data Radiologist's impression: Impressions Head CT 11/04/24 17:28 Impression: 1.No acute intracranial abnormality. Cervical Spine CT 11/04/24 17:31 Impression: No acute abnormality. Discharge Plan Discharge Clinical Impression: Head injury, Abrasion of scalp Patient Disposition: Home Condition: Stable Instructions: Antibiotic Form, Head Injury (ED), Abrasion (ED) Additional Instructions: Have close follow-up with your primary care physician Patient Language: Frisian Prescriptions: No Action quetiapine 50 mg tablet 50 mg PO QAM Qty: 30 5RF pantoprazole 40 mg tablet,delayed release (DR/EC) 40 mg PO QAM 30 Days Qty: 30 0RF acetaminophen [Tylenol Extra Strength] 500 mg tablet 1,000 mg PO Q6H PRN (Reason: pain) Qty: 50 0RF lidocaine 5 % adhesive patch,medicated 1 patch topical DAILY Qty: 15 0RF Rx Instructions: leave on most painful area for up to 12 hrs aspirin [Children's Aspirin] 81 mg tablet,chewable 81 mg PO DAILY@0800 30 Days Qty: 30 2RF donepezil 5 mg tablet 5 mg PO QHS Qty: 90 3RF nitroglycerin 0.4 mg tablet, sublingual 0.4 mg sublingual Q5M PRN (Reason: Chest Pain) Qty: 25 1RF Rx Instructions: do not exceed 3 doses per episode atorvastatin 80 mg tablet 80 mg PO QHS Qty: 90 3RF ipratropium bromide 42 mcg (0.06 %) spray,non-aerosol See Rx Instructions intranasal ONCE Qty: 15 5RF Rx Instructions: Use at least once daily, may use three times daily if needed. montelukast 10 mg tablet 10 mg PO DAILY Qty: 30 7RF quetiapine 100 mg tablet 100 mg PO QHS Qty: 30 3RF memantine 21 mg capsule,sprinkle,ER 24hr 21 mg PO DAILY Qty: 90 3RF metoprolol succinate [Toprol XL] 25 mg tablet extended release 24 hr 25 mg PO QAM Qty: 30 5RF famotidine 20 mg tablet 20 mg PO DAILY Qty: 30 4RF Follow-up/Referrals: Navi Worley MD [Primary Care Provider, Family Practice]
--- NOTE | 2024-11-04 17:32 | PC.NURSE ---
Pt. son called. He is taking a shower and then headed up to see him.
--- NOTE | 2024-11-04 18:02 | PC.NURSE ---
Report called to [facility] by this RN. Son updated by phone that pt. is up for d/c. Son states he will be to ER to pick pt. up in 35 minutes.
[2024-11-04 18:31] VITALS: BP 110/72; PULSE 85; RESP 16; O2SAT 100
== END 2024-11-04 18:33 ==
LOC: ANHED 17:50
PROVIDERS: Emergency Provider Emergency Medicine; PCP Family Medicine Adolescent Medicine
DX: S00.01XA Abrasion of scalp, initial encounter (principal); I10 Essential (primary) hypertension; I25.10 Atherosclerotic heart disease of native coronary artery without angina pectoris; I25.2 Old myocardial infarction; Z98.49 Cataract extraction status, unspecified eye; Z85.46 Personal history of malignant neoplasm of prostate; Z87.891 Personal history of nicotine dependence; W19.XXXA Unspecified fall, initial encounter
CPT/HCPCS: 70450; 72125; 99284